=== PATIENT | female | born 1945 | race Caucasian/White ===

== ENCOUNTER 2016-10-06 21:59 | Inpatient (IN) | payer OTHER, MEDICAID ==
[~2016-10-06] VITALS: Ht 162.5 cm; Wt 93.0 kg
--- NOTE | ~2016-10-06 | CON ---
[place], [place] REPORT OF CONSULTATION NAME: JOHN JONES [facility] #: [id number] UNIT #: [id number] ROOM: 425 DOCTOR: NICOLE VALERIO DPM BIRTHDATE: [birth year] DOS: 10/07/2016 HISTORY OF PRESENT ILLNESS: The patient is a 70-year-old white female who is well known to our practice. The patient had a partial matrixectomy performed to the lateral right great toe. The patient still experiences some discomfort and redness to the area. PAST MEDICAL HISTORY: The patient has a past medical history of anxiety, COPD, depression, dyslipidemia, essential tremor, GERD, hypothyroidism, obesity. PAST SURGICAL HISTORY: Laparoscopic cholecystectomy, colonoscopy with polypectomy, rotator cuff repair. SOCIAL HISTORY: Denies alcohol or illicit drug use. Former smoker, quit 12 years ago, but smoked 1 pack daily for 25 years. FAMILY HISTORY: Family history of father unknown to the patient. Mother at 87 of COPD. ALLERGIES: PREDNISONE, ALBUTEROL. LOWER EXTREMITY EXAMINATION: Pedal pulses palpable. Skin color, temperature, and hair growth within normal limits. Epicritic sensations intact. Dermatologic: There is mild erythema noted to the lateral border of the right hallux. There is eschar noted at the proximal border upon debridement. There is no deep sinus tract noted. No signs of purulent drainage or foul odor. Mild incurvation at the proximal aspect noted, which was debrided. ASSESSMENT: Paronychia, lateral right hallux. PLAN: Evaluation and management. Debrided eschar at the proximal eponychium along with further nail plate at the proximal lateral aspect of the right hallux. Ordered Bactroban and gauze dressing to be applied daily, and we will reappoint with the patient for continued care and followup. Thank you for the kind consultation. NICOLE VALERIO DPM CM:CONSTR:REPORT OF CONSULTATION 1318 10/08/16 0333 interface
--- NOTE | ~2016-10-06 | CON ---
[place], [place] REPORT OF CONSULTATION NAME: JOHN JONES [facility] #: [id number] UNIT #: [id number] ROOM: 425 DOCTOR: LEI CH MDKAELA BIRTHDATE: [birth year] DOS: 10/11/2016 PULMONARY CONSULTATION EVALUATION AND MANAGEMENT Consultation requested by the hospitalist services. REASON FOR ASSESSMENT: Ongoing exacerbation of bronchial asthma for this patient now responding to current treatment with maximal medical therapy. HISTORY OF PRESENT ILLNESS: A 70-year-old white female who has been admitted to the hospital under the care of hospitalist service on 10/06/2016. The patient stated that she has developed significant progressive coughing for the past couple of weeks associated with severe wheezing. The patient's cough has been noted very severe and nonproductive. The cough has been associated with hoarseness later on. She was also noted with symptoms of shortness breath, which occurred with little bit of ambulation. She denied symptoms of chest pain, but complained of tightness in the chest. The patient has been treated with intravenous antibiotics, corticosteroids, bronchodilators of the patient since hospitalization and not responding to treatment. The cough has been noted as one of the major complaints for this patient, which has not been responding to the current treatment. REVIEW OF SYSTEMS: CONSTITUTIONAL SYMPTOMS: Fatigue and tiredness noted for this patient without symptoms of fever or chills. EYES: Denies burning, redness, or tenderness. EARS, NOSE, THROAT SYMPTOMS: The patient was noted with current hoarseness. The patient's is having severe cough. Denied postnasal drainage or epistaxis. CARDIOVASCULAR SYSTEM: Denies anginal pain, edema or pain of the lower extremities or palpitations. GASTROINTESTINAL SYMPTOMS: Denies nausea, vomiting, diarrhea, abdominal pain, hematemesis, or melena. Denied symptoms of dysphagia, abnormal weight loss or gastroesophageal reflux. SKIN: No lesions or rashes. GENITOURINARY SYMPTOMS: Denies dysuria, suprapubic pain, hematuria. CENTRAL NERVOUS SYSTEM: Denies dizziness, headache, diplopia, or syncopal episodes. Remaining systems were reviewed with the patient, they were noted all negative. PAST MEDICAL HISTORY: 1. Has been noted with history of longstanding bronchial asthma. 2. History of COPD, was also reported. 3. Anxiety disorder. 4. History of depression. 5. Essential tremors. 6. Gastroesophageal reflux. 7. Hypothyroidism. 8. Moderate severe obesity. 9. History of lumbago. [place], [place] REPORT OF CONSULTATION NAME: JOHN JONES [facility] #: [id number] UNIT #: [id number] ROOM: 425 DOCTOR: KAELA ANDERSON MD BIRTHDATE: [birth year] PAST SURGICAL HISTORY: 1. Laparoscopic cholecystectomy. 2. Polypectomy. 3. Rotator cuff repair. SOCIAL HISTORY: The patient started smoking cigarettes at his younger age, smoked about a pack of cigarettes per day that was discontinued in 2003. Denied history of illicit drug use or occupation related pulmonary exposure. FAMILY HISTORY: For the father was unknown. Mother age of 8787 years old, complications of COPD. MEDICATIONS: The home medication was reported as use of, Lipitor, Celexa, diazepam, Aricept, Lingle, ibuprofen, levothyroxine, primidone, and tizanidine. ALLERGIES: THE PATIENT'S DRUG ALLERGY IS NOTED WITH PREDNISONE CAUSING INCREASED ANXIETY. ALBUTEROL ALSO CAUSING THE SYMPTOMS OF ANXIETY WELL. PHYSICAL EXAMINATION: GENERAL: A 70-year-old white female who has been currently noted awake and alert without any distress. Height of 5 feet 4 inches, weight of 205 pounds, BMI 35.2, notes excessive coughing without any sputum expectoration upon examination. VITAL SIGNS: Showed normal temperature, respiratory rate 16-18, heart 68-65, blood pressure 98/49-119/70. The pulse oxygen saturation on room air was 95% saturation. HEENT: Moderate severe obesity. Neck was supple. Head was atraumatic. Eyes nonicterus. CARDIOVASCULAR SYSTEM: S1, S2 is audible. LUNGS: Examination of lungs for the patient noted without any crackles. Diffuse expiratory wheezing noted with decreased breath sounds bilaterally. ABDOMEN: Soft, nontender. Bowel sounds present. EXTREMITIES: For the patient shows no edema, clubbing, or cyanosis. CENTRAL NERVOUS SYSTEM: Cranial nerves 2-12 intact. MUSCULOSKELETAL SYMPTOMS: No deformities. SKIN: No lesions or rashes. LABORATORY DATA: On 10/06/2016, CBC was noted as normal except eosinophils of 4.1% for the patient on 10/06/2016. Lactic acid normal, 10/06/2016. 10/06/2016, CMP for this patient was noted as normal. The PT, PTT for the patient of 10/07/2016 were normal. CK-MB, troponin were noted normal on 10/06/2016 and 10/07/2016. CBC that was done yesterday remains normal with eosinophils 0.7%. The BMP of the patient yesterday shows glucose of 131. Remaining BMP was normal. Blood culture from admission 10/06/2016, no bacterial growth. Chest x-ray of the patient, which has been noted for this patient on admission as no acute pulmonary pathology. CT of the chest of the patient, 10/10/2016 for the patient was noted without any acute pulmonary infiltration or other major abnormalities. [place], [place] REPORT OF CONSULTATION NAME: JOHN JONES UNIT #: [id number] ROOM: 425 DOCTOR: KAELA ANDERSON MD BIRTHDATE: [birth year] IMPRESSION: The patient with nonresolving acute exacerbation of chronic obstructive pulmonary disease and bronchial asthma for this patient with persistent symptoms of cough, wheezing, and shortness of breath with maximal medical therapy at the present time. Possibility of mucus impaction of the major airways was suspected. The patient was getting very high dose of corticosteroids and Solu-Medrol 80 mg q. 8 hours without any response to the treatment. PLAN OF TREATMENT: Therapeutic bronchoscopy for the patient was considered and plan for the patient to be done in the morning. Risks and benefits of procedure have been discussed with the patient in detail. The patient is agreeable for the procedure. Procedure was scheduled to be done in the morning, n.p.o. past midnight status will be ordered. Reduce the Solu-Medrol for this patient at the present time for this patient since there has not been any further changes noted with high dose of corticosteroids. The Solu-Medrol will be decreased to 40 mg every 8 hours at the present time. Other supportive therapy, plan of management to be continued as well. Usual care. Supportive care, other usual medical management. Further changes in the treatment will be done based on progression of the illness. Continue use of the flutter valve and other treatment as well to help clear secretions if possible. Thanks for allowing me to participate in the care of this patient. KAELA ODOM MD CM:CONSTR:REPORT OF CONSULTATION 1352 11/18/16 1131 interface
--- NOTE | ~2016-10-06 | PR ---
[place], [place] PROGRESS NOTE NAME: JOHN JONES [facility] #: [id number] UNIT #: [id number] ROOM: 425 DOCTOR: LETY THAO DPM BIRTHDATE: [birth year] DOS: 10/08/2016 SUBJECTIVE: This patient is seen for followup of removal of ingrown toenail of the right great toe. She states that she is feeling better and looks better, less redness and swelling, less pain. OBJECTIVE: Neurovascular status is unchanged. The lateral border of the right great toe has minimal edema and erythema. No purulent drainage or malodor, no signs of active infection. Minimal pain noted to palpation. ASSESSMENT: Paronychia, lateral right great toe. PLAN: E and M, continue with local wound care. The patient is improving nicely at this time. We can follow her up upon discharge in the office as an outpatient. LETY THAO DPM CM:PNTRANS [phone] LETY THAO DPM 10/09/16 0343 interface
--- NOTE | ~2016-10-06 | PROC NOTE ---
[place], [place] PROCEDURE NOTE [facility]: [facility] [id number] UNIT #: [id number] ROOM: 425 DOCTOR: LEI CH MD,KAELA BIRTHDATE: [birth year] DOS: 10/12/2016 BRONCHOSCOPY NOTE PREOPERATIVE DIAGNOSES: Severe nonresolving cough and wheezing and shortness of breath, not responding to current maximum medical therapy for the past several days. POSTOPERATIVE DIAGNOSES: Removal of multiple moderate amount of mucus impaction from the endobronchial tree bilaterally without difficulty. There were no endobronchial lesions. Tracheobronchitis was noted. PROCEDURE DESCRIPTION: Informed consent obtained from the patient. The patient brought to the OR and placed in supine position. Conscious sedation administered by the Anesthesia Department. After achieving proper sedation, airway introduced in the mouth. Bronchoscope advanced into the airway into laryngeal area. The epiglottis and vocal cords were seen. Bronchoscope advanced to the vocal cord and tracheal lumen. Tracheal lumen was identified and noted with moderate amount of thick mucus secretion, which was suctioned out to the julio c level. Multiple plugs and mucus were present in right upper, right middle, right lower, left upper, lingular lower lobe, bronchial openings and subsegments. All the secretions suctioned out with half normal saline wash, sent for culture. Procedure was tolerated by the patient without difficulty. Postoperative finding was discussed with the patient without any difficulty. KAELA ODOM MD CM:PROCNOTE:PROCEDURE NOTE [phone] KAELA CH MD
--- NOTE | ~2016-10-06 | PR ---
[place], [place] PROGRESS NOTE NAME: JOHN JONES [facility] #: [id number] UNIT #: [id number] ROOM: 425 DOCTOR: LEI CH MD,KAELA BIRTHDATE: [birth year] DOS: 10/12/2016 SUBJECTIVE: She has been noted severe continued cough without any improvement. The wheezing was also described as shortness of breath in exertion. The patient denies any symptoms of chest pain, abdominal pain. She is n.p.o. past midnight and bronchoscopy was planned for today. OBJECTIVE: VITAL SIGNS: Show normal temperature, respiratory rate 20, heart rate 77, blood pressure 127/65. Intake is 2090, output 2100 mL. Pulse oxygen saturation on room air was 94% saturation. HEENT: Shows no acute change. NECK: Supple. CARDIOVASCULAR SYSTEM: S1, S2 is audible. LUNGS: For this patient was noted without any crackles or rhonchi. Deep breaths are noted decreased bilaterally. Expiratory wheezing was present. ABDOMEN: Soft, obese, nontender. IMPRESSION: The patient with acute exacerbation of bronchial asthma with tracheobronchitis as well as Sulfanilamide chronic obstructive pulmonary disease as well not responding to current treatment, persistent respiratory symptoms. PLAN OF TREATMENT: Plan for the bronchoscopy, proceed with bronchoscopy rather today as planned. No change in medical management and modification of treatment if necessary will be done after bronchoscopy. Continue the usual care, plan of management, other treatment and therapies. Supportive care. KAELA ODOM MD CM:PNTRANS [phone] KAELA CH MD 10/12/162137 interface
--- NOTE | ~2016-10-06 | PR ---
[place], [place] PROGRESS NOTE NAME: JOHN JONES [facility] #: [id number] UNIT #: [id number] ROOM: 425 DOCTOR: LEI CH MD,KAELA BIRTHDATE: [birth year] DOS: 10/13/2016 SUBJECTIVE: The patient has bronchoscopy done yesterday significant reduction in respiratory symptoms were noted. She denies symptoms of chest pain or any abdominal pain. The wheezing, shortness of breath and cough has been resolving. OBJECTIVE: VITAL SIGNS: Normal temperature, respiratory rate 14, heart rate of 70, blood pressure 118/72. Pulse oxygen saturation on room air was 95% saturation. HEENT: Shows no acute change. NECK: Supple. CARDIOVASCULAR SYSTEM: S1, S2 audible. LUNGS: Noted without any wheeze or crackles. ABDOMEN: Soft, nontender. LABORATORY DATA: Preliminary culture of the bronchial washing showed normal kalee. Gram stains few epithelial cells without any organisms. IMPRESSION: The patient with progressive resolution of the acute exacerbation of chronic obstructive pulmonary disease/bronchial asthma. The patient at the present time status post bronchoscopy. PLAN OF TREATMENT: The patient will be continued with current plan of management. The patient rather could be considered for home discharge on tapering dose of prednisone or antibiotic and follow up in the office. Continue abstinence from tobacco use was advised. KAELA ODOM MD CM:PNTRANS 1248 KAELA CH MD 10/13/167 interface
--- NOTE | ~2016-10-06 | PR ---
[place], [place] PROGRESS NOTE NAME: JOHN JONES [facility] #: [id number] UNIT #: [id number] ROOM: 425 DOCTOR: NICOLE VALERIO DPM BIRTHDATE: [birth year] DOS: 10/12/2016 SUBJECTIVE: The patient presents for followup of paronychia of lateral border of the right great toe. OBJECTIVE: There is decreased erythema and mild eschar of the proximal aspect of the lateral right eponychium. ASSESSMENT: Paronychia of lateral first right toe. PLAN: Evaluation and management. Apply Bactroban and dressing daily and we will reappoint for followup if the patient is still inhouse in 2 days. NICOLE VALERIO DPM CM:RACHEL [phone] NICOLE VALERIO DPM 10/12/161931 interface
--- NOTE | ~2016-10-06 | PR ---
[place], [place] PROGRESS NOTE NAME: JOHN JONES [facility] #: [id number] UNIT #: [id number] ROOM: 425 DOCTOR: NICOLE VALERIO DPM BIRTHDATE: [birth year] DOS: 10/09/2016 SUBJECTIVE: The patient presents for followup of perionychia, lateral border of the right great toe. The patient felt much improved at this time. OBJECTIVE: EXTREMITIES: There is decreased erythema compared to visit on . No signs of purulent drainage or foul odor, much improved. ASSESSMENT: Paronychia, lateral right great toe. PLAN: Evaluation and management. Continue local wound care, and the patient can be followed next week as an outpatient. NICOLE VALERIO DPM CM:RACHEL [phone] NICOLE VALERIO DPM 10/10/16 0124 interface
[~2016-10-06 21:59] MED LIST: ACETAMINOPHEN-H1 TA2 PO; ALBUTEROL0.09 MG/A2 INH; AMOXICILLIN500 M2 PO; ARICEPT5 M1 PO; ATIVAN1 MG PO; B12,B-12,B 12500 MC1 PO; CALCIUM 600 +1 EA11 PO; CELEXA20 MG PO; CELEXA40 MG PO; CIPRO250 MG PO; CLINDAMYCIN150 MG PO; DAYPRO600 M1 PO; DIAZEPAM10 MG PO; FLAGYL500 MG PO; HYDROCODONE BIT1 T11 PO; IMODIUM A-D2 M2 PO; LEVAQUIN750 M1 PO; LEVOFLOXACIN500 MG PO; LEVOTHYROXINE0.1 MG PO; LIPITOR20 MG PO; LIPITOR40 MG PO; MOBIC7.5 MG PO; MOTRIN 600 MG E4 TAB PO; MOTRIN800 MG PO; MYSOLINE50 M2 PO; Motrin,Rufen800 MG PO; Mysoline50 MG PO; NAPROSYN500 MG PO; NORCO 10-325 T1 EACH PO; NORCO 325 MG-51 TAB PO; NORCO 5-325 TA1 EACH PO; PERCOCET 325 MG1 TA1 PO; PERCOCET 325 MG1 TA6 PO; PREDNISONE10 MG PO; PREDNISONE50 MG PO; PREVACID30 M1 PO; PRILOSEC20 M1 PO; PROAIR HFA8.5 GM INH; SOMA; SOMA COMPOUND PO; SONATA10 MG PO; SYMBICORT1 AE1 INH; SYNTHROID,LEV100 MCG PO; Synthroid,Levo50 MCG PO; TESSALON PERLE200 MG PO; TIZANIDINE HCL4 MG PO; TRAMADOL HCL50 MG PO; ULTRAM50 MG PO; VALIUM5 MG PO; VIBRA-TAB100 M1 PO; VITAMIN D5000 I2 PO; VITAMIN D50000 I3 PO; VITAMIN D50000 IU PO; ZANAFLEX4 M1 PO; ZOFRAN ODT4 MG SL
[2016-10-06 22:03] VITALS: BP 123/80
[2016-10-06 22:51] LABS: BASO % 0.6 % (0.0-1.0); EOS # 0.3 10*3/uL (0.0-0.4); EOS % 4.1 % (1.0-4.0); LYMPH # 1.2 10*3/uL (1.3-4.4); MEAN CELL VOLUME 90.7 fl (81.0-99.0); MEAN CORPUSCULAR HGB 30.2 pg (27.0-31.0); MEAN CORPUSCULAR HGB CONC 33.3 g/dl (33.0-37.0); MEAN PLATELET VOLUME 9.4 fl (9.6-12.3); MONO # 0.5 10*3/uL (0.1-1.0); MONO % 7.3 % (3.0-9.0); NEUT # 5.1 10*3/uL (2.3-7.9); NEUT % 70.7 % (47.0-73.0); PLATELET COUNT AUTOMATED 157 10*3/uL (130-400); RED CELL DISTRI WIDTH 13.2 % (0-14.5); WHITE BLOOD COUNT 7.2 10*3/uL (4.8-10.8)
[2016-10-06 23:00] VITALS: BP 140/82
[2016-10-06 23:06] LABS: ALBUMIN 3.9 gm/dl (3.1-4.5); BILIRUBIN, TOTAL 0.2 mg/dl (0.2-1.0); BUN 9 mg/dl (7-24); CARBON DIOXIDE 29 mmol/L (21-32); CHLORIDE 106 mmol/L (98-107); EST GLOM FILT AFRICAN AMERICAN > 60 ml/min; GLUCOSE 106 mg/dL (65-99); POTASSIUM 3.8 mmol/L (3.5-5.1); SGOT/AST 26 IU/L (3-35); SGPT/ALT 36 U/L (12-78); SODIUM 143 mmol/L (136-145); TOTAL PROTEIN 7.2 gm/dL (6.4-8.2)
[2016-10-06 23:09] LABS: ALKALINE PHOSPHATASE 110 U/L (45-117)
[2016-10-07 00:15] VITALS: BP 144/88
[2016-10-07] MEDS ORDERED: VALIUM10 MG PO (01:05)
[2016-10-07 04:00] VITALS: BP 128/61
[2016-10-07 06:38] LABS: BASO % 0.3 % (0.0-1.0); EOS % 0.3 % (1.0-4.0); HEMATOCRIT 37.7 % (37.0-47.0); HEMOGLOBIN 12.1 g/dl (12.0-16.0); LYMPH # 0.6 10*3/uL (1.3-4.4); LYMPH % 8.9 % (27.0-41.0); MEAN CELL VOLUME 92.2 fl (81.0-99.0); MEAN CORPUSCULAR HGB 29.6 pg (27.0-31.0); MEAN CORPUSCULAR HGB CONC 32.1 g/dl (33.0-37.0); MEAN PLATELET VOLUME 9.6 fl (9.6-12.3); MONO # 0.4 10*3/uL (0.1-1.0); NEUT # 5.1 10*3/uL (2.3-7.9); PLATELET COUNT AUTOMATED 133 10*3/uL (130-400); RED BLOOD COUNT 4.09 10*6/uL (4.10-5.10); RED CELL DISTRI WIDTH 13.2 % (0-14.5); WHITE BLOOD COUNT 6.2 10*3/uL (4.8-10.8)
[2016-10-07 06:49] LABS: CKMB 0.9 ng/ml (0.5-3.6)
[2016-10-07 07:41] LABS: INTERNATIONAL NORM RATIO 0.9 (2.0-3.5); PROTHROMBIN TIME 9.7 SECONDS (9.0-12.4)
[2016-10-07 07:45] LABS: BUN 10 mg/dl (7-24); CARBON DIOXIDE 29 mmol/L (21-32); CHLORIDE 105 mmol/L (98-107); EST GLOM FILT AFRICAN AMERICAN > 60 ml/min; GLUCOSE 130 mg/dL (65-99); POTASSIUM 3.9 mmol/L (3.5-5.1); SODIUM 143 mmol/L (136-145)
[2016-10-07 08:00] VITALS: BP 152/82
[2016-10-07 12:00] VITALS: BP 135/66
[2016-10-07 12:20] LABS: CKMB 1.1 ng/ml (0.5-3.6)
[2016-10-07 16:00] VITALS: BP 136/93
[2016-10-08] VITALS: BP 119/63
[2016-10-08 08:00] VITALS: BP 138/80
[2016-10-08 12:00] VITALS: BP 138/85
[2016-10-08 16:00] VITALS: BP 120/76
[2016-10-08 20:00] VITALS: BP 142/77
[2016-10-09] VITALS: BP 126/61
[2016-10-09 08:00] VITALS: BP 148/82
[2016-10-09 12:00] VITALS: BP 110/86
[2016-10-09] MEDS ORDERED: PRIMIDONE250 MG PO (13:47)
[2016-10-09 16:00] VITALS: BP 132/70
[2016-10-09 20:00] VITALS: BP 130/72
[2016-10-10] VITALS: BP 115/90
[2016-10-10 06:11] LABS: BASO % 0.5 % (0.0-1.0); EOS % 0.7 % (1.0-4.0); HEMATOCRIT 38.4 % (37.0-47.0); HEMOGLOBIN 12.5 g/dl (12.0-16.0); LYMPH # 1.1 10*3/uL (1.3-4.4); LYMPH % 18.8 % (27.0-41.0); MEAN CELL VOLUME 91.2 fl (81.0-99.0); MEAN CORPUSCULAR HGB 29.7 pg (27.0-31.0); MEAN CORPUSCULAR HGB CONC 32.6 g/dl (33.0-37.0); MEAN PLATELET VOLUME 9.9 fl (9.6-12.3); MONO # 0.5 10*3/uL (0.1-1.0); MONO % 8.2 % (3.0-9.0); NEUT % 71.1 % (47.0-73.0); PLATELET COUNT AUTOMATED 177 10*3/uL (130-400); RED BLOOD COUNT 4.21 10*6/uL (4.10-5.10); RED CELL DISTRI WIDTH 13.2 % (0-14.5); WHITE BLOOD COUNT 5.6 10*3/uL (4.8-10.8)
[2016-10-10 06:52] LABS: BUN 23 mg/dl (7-24); CARBON DIOXIDE 26 mmol/L (21-32); CHLORIDE 106 mmol/L (98-107); EST GLOM FILT AFRICAN AMERICAN > 60 ml/min; GLUCOSE 131 mg/dL (65-99); POTASSIUM 4.5 mmol/L (3.5-5.1); SODIUM 140 mmol/L (136-145)
[2016-10-10 08:00] VITALS: BP 104/62
[2016-10-10 12:00] VITALS: BP 116/58
[2016-10-10 16:00] VITALS: BP 117/70
[2016-10-10 20:00] VITALS: BP 138/73
[2016-10-11] VITALS: BP 136/73
[2016-10-11 08:00] VITALS: BP 116/70
[2016-10-11 12:00] VITALS: BP 98/49
[2016-10-11 16:00] VITALS: BP 98/71
[2016-10-11 20:00] VITALS: BP 136/73
[2016-10-12] VITALS (8 sets, daily range): BP systolic 121–137; BP diastolic 63–90
[2016-10-12] MEDS ORDERED: AEROECLIPSE NEB1 DEV NEB (13:05)
[2016-10-12] MEDS ORDERED: LEVAQUIN750 M1 PO (13:05)
[2016-10-12] MEDS ORDERED: DUONEB 3 MG/3 ML3 M1 INH (13:05)
[2016-10-12] MEDS ORDERED: PREDNISONE50 MG PO (13:05)
[2016-10-13] VITALS: BP 108/62
[2016-10-13 07:39] VITALS: BP 122/70
[2016-10-13 12:00] VITALS: BP 118/72
[2016-10-13] MEDS ORDERED: DULERA 100 MCG8.8 GM IH (12:38)
[2016-10-13 15:08] LABS: ACID FAST SPEC PROCESSING Concentration (.)
[2016-11-01 16:09] LABS: M AVIUM COMPLEX Positive (.); M TUBERCULOSIS COMPLEX Negative (.)
[2016-12-09] MEDS ORDERED: PROPRANOLOL HCL60 MG PO (16:23)
[2016-12-09] MEDS ORDERED: AMOX/CLAV POT 81 TAB PO (16:23)
[2016-12-09] MEDS ORDERED: ROBITUSSIN DM 101 OZ PO (18:02)
== END 2016-10-13 13:09 | disposition home health service (06) | DRG 190 ==
LOC: ED 21:59 → EDHOLD 23:34 → 4E 23:34
PROVIDERS: Family Medicine; Internal Medicine; Internal Medicine Critical Care Medicine; Nurse Practitioner Family
PROC: 0BC48ZZ Extirpation of Matter from Right Upper Lobe Bronchus, Via Natural or Artificial Opening Endoscopic (ICD-10-PCS; principal; 2016-10-12)
PROC: 0BC58ZZ Extirpation of Matter from Right Middle Lobe Bronchus, Via Natural or Artificial Opening Endoscopic (ICD-10-PCS; principal; 2016-10-12)
PROC: 0BC28ZZ Extirpation of Matter from Carina, Via Natural or Artificial Opening Endoscopic (ICD-10-PCS; principal; 2016-10-12)
PROC: 0BC88ZZ Extirpation of Matter from Left Upper Lobe Bronchus, Via Natural or Artificial Opening Endoscopic (ICD-10-PCS; principal; 2016-10-12)
PROC: 0BC98ZZ Extirpation of Matter from Lingula Bronchus, Via Natural or Artificial Opening Endoscopic (ICD-10-PCS; principal; 2016-10-12)
PROC: 0BC68ZZ Extirpation of Matter from Right Lower Lobe Bronchus, Via Natural or Artificial Opening Endoscopic (ICD-10-PCS; principal; 2016-10-12)
DX: J44.1 Chronic obstructive pulmonary disease with (acute) exacerbation (principal); J18.9 Pneumonia, unspecified organism; J44.0 Chronic obstructive pulmonary disease with (acute) lower respiratory infection; K21.9 Gastro-esophageal reflux disease without esophagitis; G25.0 Essential tremor; F41.9 Anxiety disorder, unspecified; F32.9 Major depressive disorder, single episode, unspecified; E78.5 Hyperlipidemia, unspecified; E03.9 Hypothyroidism, unspecified; L03.031 Cellulitis of right toe; R73.9 Hyperglycemia, unspecified; E55.9 Vitamin D deficiency, unspecified; E66.9 Obesity, unspecified; J20.9 Acute bronchitis, unspecified; Z68.35 Body mass index [BMI] 35.0-35.9, adult; Z90.49 Acquired absence of other specified parts of digestive tract; Z98.890 Other specified postprocedural states; Z87.891 Personal history of nicotine dependence; Z88.8 Allergy status to other drugs, medicaments and biological substances; Z82.5 Family history of asthma and other chronic lower respiratory diseases; Z79.899 Other long term (current) drug therapy

== ENCOUNTER → 2017-01-18 | Outpatient (CLI) | payer OTHER, MEDICAID ==
[~2017-01-18] MED LIST changes: +AEROECLIPSE NEB1 DEV NEB; +AMOX/CLAV POT 81 TAB PO; +DULERA 100 MCG8.8 GM IH; +DUONEB 3 MG/3 ML3 M1 INH; +PRIMIDONE250 MG PO; +PROPRANOLOL HCL60 MG PO; +ROBITUSSIN DM 101 OZ PO; +VALIUM10 MG PO
== END | disposition home or self-care (01) ==
LOC: LAB 14:47
DX: R05 Cough (principal)

== ENCOUNTER 2017-02-16 13:40 | Emergency (ER) | payer OTHER, MEDICAID ==
[~2017-02-16] VITALS: Ht 165.1 cm; Wt 90.7 kg
[2017-02-16 13:55] VITALS: BP 123/80
[2017-02-16 14:27] LABS: BASO % 0.3 % (0.0-1.0); EOS # 0.2 10*3/uL (0.0-0.4); HEMATOCRIT 42.5 % (37.0-47.0); HEMOGLOBIN 14.9 g/dl (12.0-16.0); LYMPH # 1.7 10*3/uL (1.3-4.4); LYMPH % 15.4 % (27.0-41.0); MEAN CELL VOLUME 87.4 fl (81.0-99.0); MEAN CORPUSCULAR HGB 30.7 pg (27.0-31.0); MEAN CORPUSCULAR HGB CONC 35.1 g/dl (33.0-37.0); MEAN PLATELET VOLUME 9.2 fl (9.6-12.3); MONO # 0.7 10*3/uL (0.1-1.0); MONO % 6.4 % (3.0-9.0); NEUT # 8.5 10*3/uL (2.3-7.9); NEUT % 75.7 % (47.0-73.0); PLATELET COUNT AUTOMATED 200 10*3/uL (130-400); RED BLOOD COUNT 4.86 10*6/uL (4.10-5.10); RED CELL DISTRI WIDTH 13.1 % (0-14.5); WHITE BLOOD COUNT 11.2 10*3/uL (4.8-10.8)
[2017-02-16 14:41] LABS: ALBUMIN 4.2 gm/dl (3.1-4.5); ALKALINE PHOSPHATASE 98 U/L (45-117); BILIRUBIN, TOTAL 0.4 mg/dl (0.2-1.0); BUN 16 mg/dl (7-24); CARBON DIOXIDE 24 mmol/L (21-32); CHLORIDE 108 mmol/L (98-107); EST GLOM FILT AFRICAN AMERICAN > 60 ml/min; GLUCOSE 103 mg/dL (65-99); POTASSIUM 4.4 mmol/L (3.5-5.1); SGOT/AST 24 IU/L (3-35); SGPT/ALT 35 U/L (12-78); SODIUM 140 mmol/L (136-145); TOTAL PROTEIN 7.5 gm/dL (6.4-8.2)
[2017-02-16 15:35] LABS: BILIRUBIN 2+ (NEGATIVE); BLOOD 3+ (NEGATIVE); CLARITY TURBID (CLEAR); COLOR RED (YELLOW); GLUCOSE NEGATIVE (NEGATIVE); KETONE NEGATIVE (NEGATIVE); LEUKO ESTERASE 2+ (NEGATIVE); NITRITE POSITIVE (NEGATIVE); PROTEIN 2+ (NEGATIVE); SPECIFIC GRAVITY 1.025 (1.005-1.030)
[2017-02-16 15:43] LABS: BACTERIA 4+; RBC TNTC rbc/hpf (0-2); URINE REFLEX COMMENT YES (NO); WBC TNTC wbc/hpf (0-5)
[2017-02-16] MEDS ORDERED: AMINOPHYLLIN200 MG PO (16:09)
[2017-02-16] MEDS ORDERED: HYDROCODONE BIT1 T11 PO (16:09)
[2017-02-16] MEDS ORDERED: PYRIDIUM100 MG PO (16:09)
== END 2017-02-16 16:09 | disposition home or self-care (01) ==
LOC: ED 13:40
PROVIDERS: Registered Nurse
DX: N30.01 Acute cystitis with hematuria (principal); Z88.8 Allergy status to other drugs, medicaments and biological substances; Z79.899 Other long term (current) drug therapy

== ENCOUNTER → 2017-02-22 | Outpatient (CLI) | payer OTHER, MEDICAID ==
[~2017-02-22] MED LIST changes: +AMINOPHYLLIN200 MG PO; +PYRIDIUM100 MG PO
== END | disposition home or self-care (01) ==
LOC: CT 02-15 09:00
DX: G44.1 Vascular headache, not elsewhere classified (principal)

== ENCOUNTER → 2017-03-21 | Outpatient (CLI) | payer OTHER, MEDICAID | END | disposition home or self-care (01) | LOC: MRI 12:46 | DX: M47.892 Other spondylosis, cervical region (principal); M54.41 Lumbago with sciatica, right side; G89.29 Other chronic pain; R20.8 Other disturbances of skin sensation; M47.896 Other spondylosis, lumbar region; M48.06 Spinal stenosis, lumbar region ==

== ENCOUNTER → 2017-03-23 | Outpatient (CLI) | payer OTHER, MEDICAID ==
--- NOTE | ~2017-03-23 | PROC NOTE ---
[place], [place] PROCEDURE NOTE NAME: JOHN JONES [facility] #: [id number] UNIT #: [id number] ROOM: DOCTOR: MIKO NIX BIRTHDATE: [birth year] DOS: 03/23/2017 MODIFIED BARIUM SWALLOW. DOCTOR: Dr. Carbajal RADIOLOGIST: Dr. Hayden. BACKGROUND INFORMATION: The patient is a 71-year-old female who was seen for a modified barium swallow. This test was ordered to view the pharyngeal phase of the swallow. The patient reported that for the past 8 months, she has been choking with foods and experiences the feeling that something is on the left side of her throat. She also reported that she has difficulty chewing and eating anything hard such as cookies, chips or crackers. She reported her medical history significant for tremors, back, bladder and kidney problems. Medical history per hospital records includes COPD, GERD, essential tremor, anxiety and depression. This patient is a former smoker. She reported that she smoked about a pack a day for 25 years. She is no longer smoking. She currently receives a regular diet and thin liquids. For today's assessment, she was alert and able to follow all commands. Respiratory status was within normal limits. Tremor was displayed throughout the evaluation. Oral peripheral examination revealed presence of natural teeth which were in poor condition with many missing teeth. All of her back teeth, top and bottom were missing. Labial skills were within normal limits in terms of strength, range of motion, and coordination. She displayed adequate lingual strength and range of motion; however, her movements were slow. The patient was able to volitionally cough and swallow. METHODS AND MATERIALS USED FOR THE EXAM: The patient was positioned in the lateral plane and examination was viewed under fluoroscopy. The patient was presented with a variety of consistencies to assess swallowing skills including applesauce mixed with barium presented in half teaspoon amount, barium coated cookie and sandwich presented in bite-size pieces and thin liquid barium taken by cup and straw. The patient was given the cup and instructed to swallow in her normal sip size amount. ORAL PHASE: The patient achieved adequate labial seal around cup, spoon and straw with no anterior loss. Bolus formation was adequate. Mastication of solids was slow due to her dentition. Oral transit time was slow, but functional. Tongue to palate contact was within normal limits. Tongue to posterior pharyngeal wall contact was within normal limits. Velar functioning was within normal limits, with no nasal regurgitation displayed. PHARYNGEAL PHASE: A mild delay in initiation of the pharyngeal swallow was displayed with premature loss into the vallecula prior to the swallow. Once the swallow was triggered, there was no penetration or aspiration occurring and no significant residual. ESOPHAGEAL PHASE: This phase of the swallow was not formally assessed during this examination. [place], [place] [facility]EDURE NOTE [id number] #: [id number] ROOM: DOCTOR: MIKO NIX BIRTHDATE: [birth year] IMPRESSIONS AND RECOMMENDATIONS: Based upon assessment results, this 71-year-old patient presents with a mild oropharyngeal dysphagia. She displayed difficulty chewing solids due to dentition, piecemeal swallow was displayed. Premature loss occurred with pureed and solids due to delayed swallow initiation. This difficulty is most likely due to the patient's condition with medications that she is taking. No penetration or aspiration were noted and no significant residue was displayed post-swallow. It is recommended that the patient remain on present diet with use of universal safe swallow precautions, which she has been implementing. The patient demonstrated good awareness of her difficulties. No followup therapy is recommended at this time. The patient was educated on results and recommendations and verbalizes understanding. Thank you very much for this referral. Should you have any questions regarding this patient, please contact the speech pathologist at [phone]. MIKO NIX CM:PROCNOTE:PROCEDURE NOTE [id number] MIKO NIX
--- NOTE | ~2017-03-23 | SLPPN ---
[place], [place] MORNING BABYS[employer] PROGRESS NOTE NAME: JOHN JONES UNIT #: [id number] ROOM: DOCTOR: EDILIA FREEMAN Speech Language Pathology Treatment Note Page 1 1 of Patient Name: JOHN JONES Date: 03/23/2017 11:25 AM : 1945 SOC Date: 03/23/2017 [facility]: [facility] Provider #: [id number] Treating Clinician: MIRANDA Beltrán-SHRAVAN Referring Physician: EDILIA FREEMAN Onset Date Description Code Primary Diagnosis: 05/28/2016 R13.10 Dysphagia, unspecified Time In: 10:00 AM Time Out: 11:00 AM MORNING BABYSITTER Interventions and CPT Codes Consisted of: CPT Code Modifiers Minutes Units MOTION FLUOROSCOPY/SWALLOW 51991 60 1 Total Minutes: 60 Total Timed Minutes: 0 Total Untimed Minutes: 60 Total Units: 1 Total Timed Units: 0 Total Untimed Units: 1 03/23/2017 11:26:14 AM BOLIVAR Beltrán Date/Time State License #: [id number] CM:RAYMON 1435 1435 [facility]
--- NOTE | ~2017-03-23 | SLPPOC ---
[place], [place] WORKFORCE CONSULTANT PLAN OF CARE NAME: JOHN JONES UNIT #: [id number] ROOM: DOCTOR: EDILIA FREEMAN Speech Language Pathology Plan of Care Page 1 1 (Initial Evaluation) of Patient Name: JOHN JONES Date: 03/23/2017 11:23 AM : 1945 SOC Date: 03/23/2017 Provider: [facility] Provider #: [id number] Treating Clinician: MIRANDA Beltrán-WORKFORCE CONSULTANT Referring Physician: EDILIA FREEMAN Visits From SOC: 1 Medicaid #: [id number] Onset Date Code Description Primary Diagnosis: 05/28/2016 R13.10 Dysphagia, unspecified Subjective Comments: Initial evaluation created to initiate the electronic medical record. Please see [employer] for details. Initial Level Goals Functional Limitation Reporting Swallowing G8996 - Swallowing functional limitation, current status at therapy episode outset and at reporting intervals Current Status: CI - At least 1 percent but less than 20 percent impaired, limited or restricted G8997 - Swallowing functional limitation, projected goal status, at therapy episode outset, at reporting intervals, and at discharge or to end reporting Goal Status: CI - At least 1 percent but less than 20 percent impaired, limited or restricted G8998 - Swallowing functional limitation, discharge status, at discharge from therapy or to end reporting Discharge Status: CI - At least 1 percent but less than 20 percent impaired, limited or restricted 03/23/2017 11:25:15 AM EDILIA FREEMAN Date/Time MIRANDA Beltrán-WORKFORCE CONSULTANT Date I certify the need for these services furnished under this plan of treatment while under my care. State License #: [id number] CM:SLPPOC 1434 1434 [facility]
--- NOTE | ~2017-03-23 | SLPIE ---
[place], [place] ORNAMENT MAKER HAND INITIAL EVALUATION NAME: JOHN JONES Tabitha UNIT #: [id number] ROOM: DOCTOR: EDILIA FREEMAN Speech Language Pathology Initial Evaluation Page 1 1 of Patient Name: JOHN JONES Date: 03/23/2017 11:23 AM : 1945 SOC Date: 03/23/2017 Provider: [facility] Provider #: [id number] Treating Clinician: MIRANDA Beltrán-SHRAVAN Referring Physician: EDILIA FREEMAN Patient Information Address: February Physician: EDILIA FREEMAN Physician #: [place], Zip: [place], [place] [address] Occupation: Unknown # of Approved Visits: 0 Gender: Female Medicaid #: [id number] International Guest Coordinator: AGUSWALDEMAR JONES Rehabilitation Information / History Onset Date Code Description Primary Diagnosis: 05/28/2016 R13.10 Dysphagia, unspecified Subjective Comments: Initial evaluation created to initiate the electronic medical record. Please see [facility] for details. Clinical Findings Functional Goals Functional Limitation Reporting Swallowing G8996 - Swallowing functional limitation, current status at therapy episode outset and at reporting intervals Current Status: CI - At least 1 percent but less than 20 percent impaired, limited or restricted G8997 - Swallowing functional limitation, projected goal status, at therapy episode outset, at reporting intervals, and at discharge or to end reporting Goal Status: CI - At least 1 percent but less than 20 percent impaired, limited or restricted G8998 - Swallowing functional limitation, discharge status, at discharge from therapy or to end reporting Discharge Status: CI - At least 1 percent but less than 20 percent impaired, limited or restricted 03/23/2017 11:25:15 AM BOLIVAR Beltrán Date/Time [place], [place] ORNAMENT MAK[employer] HAND INITIAL EVALUATION NAME: ELISA JONESACE Lu UNIT #: [id number] ROOM: DOCTOR: EDILIA FREEMAN [facility] License #: [id number] CM:MARV 32 143 IS THERAPY REDOC
== END | disposition home or self-care (01) ==
LOC: RAD/SH 09:00
DX: R13.10 Dysphagia, unspecified (principal)

== ENCOUNTER → 2017-04-08 | Outpatient (CLI) | payer OTHER, MEDICAID | END | disposition home or self-care (01) | LOC: MAMMO 10:22 | DX: Z12.31 Encounter for screening mammogram for malignant neoplasm of breast (principal) ==

== ENCOUNTER 2017-04-20 20:47 | Inpatient (IN) | payer OTHER, MEDICAID ==
[~2017-04-20] VITALS: Ht 165.1 cm; Wt 93.0 kg
[~2017-04-20 20:47] MED LIST changes: +ARICEPT10 M1 PO; -ARICEPT5 M1 PO; +INDERAL LA60 M1 PO; -PROPRANOLOL HCL60 MG PO
[2017-04-20 20:52] VITALS: BP 143/105
[2017-04-20] MEDS ORDERED: ZYRTEC10 MG PO (21:04)
[2017-04-20] MEDS ORDERED: ZOFRAN4 MG PO (21:05)
[2017-04-20] MEDS ORDERED: OXYBUTYNIN5 MG PO (21:05)
[2017-04-20 21:06] LABS: BASO % 0.3 % (0.0-1.0); EOS # 0.2 10*3/uL (0.0-0.4); EOS % 3.2 % (1.0-4.0); HEMATOCRIT 39.8 % (37.0-47.0); HEMOGLOBIN 13.7 g/dl (12.0-16.0); LYMPH # 1.3 10*3/uL (1.3-4.4); LYMPH % 17.8 % (27.0-41.0); MEAN CELL VOLUME 88.1 fl (81.0-99.0); MEAN CORPUSCULAR HGB 30.3 pg (27.0-31.0); MEAN CORPUSCULAR HGB CONC 34.4 g/dl (33.0-37.0); MEAN PLATELET VOLUME 9.4 fl (9.6-12.3); MONO # 0.5 10*3/uL (0.1-1.0); MONO % 7.3 % (3.0-9.0); NEUT % 71.1 % (47.0-73.0); PLATELET COUNT AUTOMATED 175 10*3/uL (130-400); RED BLOOD COUNT 4.52 10*6/uL (4.10-5.10); RED CELL DISTRI WIDTH 12.6 % (0-14.5); WHITE BLOOD COUNT 7.1 10*3/uL (4.8-10.8)
[2017-04-20] MEDS ORDERED: NORCO 7.5-3251 EACH PO (21:06)
[2017-04-20] MEDS ORDERED: PRILOSEC20 M1 PO (21:06)
[2017-04-20 21:07] VITALS: BP 125/84
[2017-04-20 21:16] LABS: INTERNATIONAL NORM RATIO 0.9 (2.0-3.5); PROTHROMBIN TIME 9.9 SECONDS (9.0-12.4)
[2017-04-20 21:22] VITALS: BP 190/86
[2017-04-20 21:22] LABS: ALBUMIN 4.2 gm/dl (3.1-4.5); ALKALINE PHOSPHATASE 82 U/L (45-117); BILIRUBIN, TOTAL 0.5 mg/dl (0.2-1.0); BUN 8 mg/dl (7-24); CARBON DIOXIDE 24 mmol/L (21-32); CHLORIDE 105 mmol/L (98-107); EST GLOM FILT AFRICAN AMERICAN > 60 ml/min; GLUCOSE 107 mg/dL (65-99); MAGNESIUM 1.8 mg/dL (1.5-2.1); SGOT/AST 19 IU/L (3-35); SGPT/ALT 26 U/L (12-78); SODIUM 141 mmol/L (136-145)
[2017-04-20 21:26] LABS: TROPONIN I 0.176 ng/ml (<0.045)
[2017-04-20 21:37] VITALS: BP 123/51
[2017-04-20 21:52] VITALS: BP 136/72
[2017-04-21] VITALS (33 sets, daily range): BP systolic 62–126; BP diastolic 22–72
[2017-04-21 07:06] LABS: BASO % 0.2 % (0.0-1.0); EOS # 0.2 10*3/uL (0.0-0.4); EOS % 3.6 % (1.0-4.0); HEMATOCRIT 37.2 % (37.0-47.0); HEMOGLOBIN 12.7 g/dl (12.0-16.0); LYMPH # 1.8 10*3/uL (1.3-4.4); LYMPH % 37.8 % (27.0-41.0); MEAN CELL VOLUME 90.3 fl (81.0-99.0); MEAN CORPUSCULAR HGB 30.8 pg (27.0-31.0); MEAN CORPUSCULAR HGB CONC 34.1 g/dl (33.0-37.0); MEAN PLATELET VOLUME 9.4 fl (9.6-12.3); MONO # 0.4 10*3/uL (0.1-1.0); MONO % 8.5 % (3.0-9.0); NEUT # 2.4 10*3/uL (2.3-7.9); NEUT % 49.7 % (47.0-73.0); PLATELET COUNT AUTOMATED 140 10*3/uL (130-400); RED BLOOD COUNT 4.12 10*6/uL (4.10-5.10); RED CELL DISTRI WIDTH 12.8 % (0-14.5); WHITE BLOOD COUNT 4.7 10*3/uL (4.8-10.8)
[2017-04-21 07:16] LABS: HEMOGLOBIN A1c 5.5 % (4.8-5.6)
[2017-04-21 07:37] LABS: BUN 6 mg/dl (7-24); CARBON DIOXIDE 28 mmol/L (21-32); CHLORIDE 107 mmol/L (98-107); CHOLESTEROL 194 mg/dL (<200); EST GLOM FILT AFRICAN AMERICAN > 60 ml/min; GLUCOSE 95 mg/dL (65-99); PHOSPHOROUS 2.9 mg/dL (2.5-4.9); SODIUM 143 mmol/L (136-145); TRIGLYCERIDES 204 mg/dl (<150); VLDL CHOLESTEROL 41 mg/dL (6-40)
[2017-04-21 07:45] LABS: FOLIC ACID 12.44 ng/mL (>5.38)
[2017-04-21 07:46] LABS: FREE T4 0.98 ng/dl (0.76-1.46); HDL CHOLESTEROL 47 mg/dl (40-60); LDL CHOLESTEROL 106 mg/dL (9-159); THYROID STIM HORMONE (HS) 0.583 uIU/ml (0.358-4.75)
[2017-04-21] MEDS ORDERED: LIPITOR20 MG PO (09:25)
[2017-04-21] MEDS ORDERED: MIRALAX17 GM PO (09:26)
[2017-04-21] MEDS ORDERED: LOPRESSOR25 MG PO (22:13)
[2017-04-21] MEDS ORDERED: ASPIRIN CHEWABL81 MG PO (22:13)
[2017-04-22] VITALS: BP 123/42
[2017-04-22 04:00] VITALS: BP 120/59
== END 2017-04-22 05:35 | disposition other institution (70) | DRG 282 ==
LOC: ED 20:47 → EDHOLD 21:53 → ICCU 21:53 → 5E 22:12 → ICCU 04-21 09:01
PROVIDERS: Emergency Medicine Emergency Medical Services; Internal Medicine Hospice and Palliative Medicine
DX: I21.4 Non-ST elevation (NSTEMI) myocardial infarction (principal); J44.9 Chronic obstructive pulmonary disease, unspecified; E55.9 Vitamin D deficiency, unspecified; F32.9 Major depressive disorder, single episode, unspecified; E78.5 Hyperlipidemia, unspecified; G25.0 Essential tremor; F41.1 Generalized anxiety disorder; K21.9 Gastro-esophageal reflux disease without esophagitis; K52.9 Noninfective gastroenteritis and colitis, unspecified; E03.9 Hypothyroidism, unspecified; R73.9 Hyperglycemia, unspecified; E66.9 Obesity, unspecified; N32.81 Overactive bladder; Z88.8 Allergy status to other drugs, medicaments and biological substances; Z90.49 Acquired absence of other specified parts of digestive tract; Z87.891 Personal history of nicotine dependence; Z68.39 Body mass index [BMI] 39.0-39.9, adult

== ENCOUNTER → 2017-04-27 | Outpatient (CLI) | payer OTHER, MEDICAID ==
[~2017-04-27] MED LIST changes: +ASPIRIN CHEWABL81 MG PO; +LOPRESSOR25 MG PO; +MIRALAX17 GM PO; +NORCO 7.5-3251 EACH PO; +OXYBUTYNIN5 MG PO; +ZOFRAN4 MG PO; +ZYRTEC10 MG PO
== END | disposition home or self-care (01) ==
LOC: LAB 20:37
DX: K52.9 Noninfective gastroenteritis and colitis, unspecified (principal)

== ENCOUNTER 2017-05-16 08:27 | Inpatient (IN) | payer OTHER, MEDICAID ==
[2017-05-16] VITALS (11 sets, daily range): BP systolic 106–160; BP diastolic 45–98
[~2017-05-16] VITALS: Ht 165.1 cm; Wt 90.4 kg
--- NOTE | ~2017-05-16 | CON ---
[place], [place] REPORT OF CONSULTATION NAME: JOHN JONES [facility] #: [id number] UNIT #: [id number] ROOM: 403 DOCTOR: SATINDER FITZGERALD MD BIRTHDATE: [birth year] DOS: REQUESTING PHYSICIAN: Dr. Guadarrama. REASON FOR CONSULTATION: Elevated troponin. ASSESSMENT: 1. Current presentation with nausea, abdominal pain and diarrhea along with vomiting. 2. Elevated troponin. 3. Presentation in April with similar complaint of elevated troponin and with normal cardiac catheterization with Dr. Carey. 4. Similar presentation previously many years ago with another reported cardiac catheterization. 5. No Cardiac complaints. 6. Completely normal EKG with no acute changes. PLAN: 1. Continue workup for nausea and vomiting. 2. Management of diarrhea per PCP. 3. No further cardiac testing at this time. 4. The patient can be discharged home from the Cardiology point of view. HISTORY OF PRESENT ILLNESS: The patient is a pleasant 71-year-old female well known to our group with Dr. Nicholson. The patient apparently presented initially in April with complaint of chest pain and abdominal pain. At that time elevated troponin was noticed and the patient was transferred to ____ for non-STEMI. Cardiac catheterization was done by Dr. Carey, which showed completely normal coronaries with not even minimal plaques with normal LV function and no wall motion abnormalities. The patient apparently had similar presentation in the past with elevated troponin and underwent another cardiac catheterization, which was reported to be normal. The patient ____ back with 1-day history of nausea, vomiting along with diarrhea. This was after eating peaches. The patient has had also some chills, but no fever along with significant abdominal pain. No bright red blood per rectum. The patient unable to keep any oral food in or fluid. No chest pain, chest pressure, heaviness or tightness. No jaw pain. No left arm pain. No back pain. No symptomatic palpitation. The patient is getting dizzy following the bouts of nausea and vomiting. The patient prior to this presentation had been doing relatively well. She is active around the house, but does not follow a regular exercise program. What she is doing now is relatively similar to what she did 6 months ago. No PND. No orthopnea. No pedal edema. No symptomatic palpitation or any associated dizziness, lightheadedness or near syncope. Overall, maintaining good appetite with no significant weight shift recently. PAST MEDICAL HISTORY: As detailed in my assessment. SOCIAL HISTORY: The patient denies any current tobacco, alcohol or illicit drug abuse. The patient quit smoking about 10 years ago. [place], [place] REPORT OF CONSULTATION NAME: JOHN JONES UNIT #: [id number] ROOM: 403 DOCTOR: SATINDER FITZGERALD MD BIRTHDATE: [birth year] FAMILY HISTORY: There is no reported early family history of heart disease. CURRENT MEDICATIONS: As per chart. ALLERGIES: The patient is allergic to albuterol and prednisone. REVIEW OF SYSTEMS: Currently, the patient denies any headache, diplopia or blurry vision. The patient admits to chills, but no fever. The patient admits to nausea, vomiting, abdominal pain, but no bright red blood per rectum,. Admits to joint pain, but no muscular pain. No anxiety. No depression. No polyuria. No polydipsia. No skin rash. Review of all other systems has been negative. PHYSICAL EXAMINATION: VITAL SIGNS: Blood pressure 133/42, heart rate 64, respiratory rate of 16, temperature 98.3. GENERAL: The patient is alert, oriented x 3, quite pleasant. The patient is sitting flat in bed, does not appear in distress, reporting some improvement. HEENT: Extraocular muscles intact. Pupils equal, round, reactive to light. Conjunctivae: No pallor. Throat: No petechiae. NECK: Good upstroke. Unable to appreciate any bruit. No lymphadenopathy. No thyromegaly. HEART: S1, S2 with a faint holosystolic murmur left in upper sternal border, distant heart sounds. CHEST AND BACK: No deformities. LUNGS: Clear to auscultation. Slight decrease in air movement, but no raul wheezing or rales. ABDOMEN: Obese, soft, generalized tenderness present, active bowel sounds. Unable to appreciate any masses or bruit. This is a very limited exam. LOWER EXTREMITIES: There is no edema, with faint distal pulses. NEUROLOGIC: Grossly nonfocal. SKIN: No significant rash. LABORATORY DATA: White count 4.7, hemoglobin 12.7. There is no left shift. Neutrophil is 49%. Potassium still pending. SATINDER FITZGERALD MD CM:CONSTR:REPORT OF CONSULTATION 1059 05/17/17 0312 interface
--- NOTE | ~2017-05-16 | O ---
[place], [place] OPERATIVE NOTE [id number] UNIT #: [id number] ROOM: 403 DOCTOR: ELKIN VELASCO,DEBBI BIRTHDATE: [birth year] DOS: 05/18/2017 GASTROENDOSCOPIC REPORT INDICATION: The patient has presented with nausea, vomiting, undergoing investigation. PROCEDURE: Today's procedure part of investigation is panendoscopy plus biopsy. PREMEDICATION: Versed and Diprivan. SCOPE: Olympus forward-viewing gastroscope Q10 video. REPORT: After putting the patient in the left lateral position and after application of lubricant to the scope, the scope was introduced. Thereafter, under direct visualization, I advanced through the length of esophagus without difficulty. A 2 cm hiatal hernia photographed. Gastric pouch was entered, gastritis, gastric erosion seen. Antral biopsy obtained. Duodenal bulb, second and third part within normal limits. The patient extubated, tolerated procedure well. IMPRESSION: Mild gastritis, gastric erosion, small hiatal hernia. PLAN AND DISCUSSION: Continuation of Protonix 40 mg 1 every day. Antiemetics. Regular diet and we are going to add Florastor 250 mg p.o. b.i.d. while she is inpatient, to reculture her beneficial bacteria and clinical reassessment. Thank you very much indeed for your kind referral. DEBBI GRANGER MD CM:OPRECORD:OPERATIVE NOTE 1223 1406 DEBBI GRANGER MD 05/18/17 1537 interface
--- NOTE | ~2017-05-16 | O ---
[place], [place] OPERATIVE NOTE NAME: JOHN JONES UNIT #: [id number] ROOM: 403 DOCTOR: DEBBI GRANGER MD BIRTHDATE: [birth year] DOS: 05/18/2017 GASTROENDOSCOPIC REPORT INDICATIONS: This patient has presented with multiple medical complaints, among which has been nausea, vomiting, diarrhea; C. diff and ova and parasite has been negative. Stool cultures have been benign. Electrolytes, liver function tests and renal status are within normal limits. White blood cells 6.5, H and H of 12 and 36. PAST MEDICAL HISTORY: Obesity, hyperlipidemia, depression, COPD, history of C. diff colitis in the past and treatment, hypothyroidism, non-STEMI myocardial infarction. PAST SURGICAL HISTORY: Bronchoscopy, hysterectomy, polypectomies, rotator cuff repair. SOCIAL HISTORY: Former smoker, nonalcohol consumer. FAMILY HISTORY: Noncontributory. ALLERGIES: PREDNISONE AND ALBUTEROL. MEDICATIONS: List has been reviewed. PROCEDURE: Today's procedure part of investigation is panendoscopy and colonoscopy. PREMEDICATION: Versed and Diprivan. SCOPE: Olympus folding colonoscope 10L video. REPORT: After putting the patient in the left lateral position and after application of lubricant to rectal pouch and digital examination, scope was introduced. Thereafter, under direct visualization, I advanced through the length of colon without difficulty. Base of the cecum explored, appendiceal orifice identified, and ileocecal valve was defined. Scope was gradually withdrawn from base of cecum. As we approached the sigmoid colon, nonspecific segmental mild colitis which could be secondary to reactive diarrhea was noticed. However, biopsies obtained after photographic series. The patient extubated, tolerated the procedure well. IMPRESSION: Nonspecific segmental colitis from sigmoid colon, status post biopsy. PLAN: On discussion, we will proceed with panendoscopy. [place], [place] OPERATIVE NOTE NAME: ELISA JONESACE Lu UNIT #: [id number] ROOM: 403 DOCTOR: DEBBI GRANGER MD BIRTHDATE: [birth year] DEBBI GRANGER MD CM:OPRECORD:OPERATIVE NOTE 1223 1402 DEBBI GRANGER MD 05/18/17 1458 interface
--- NOTE | ~2017-05-16 | DS ---
[place], [place] DISCHARGE SUMMARY NAME: JOHN JONES [facility] #: [id number] UNIT #: [id number] ROOM: 403 DOCTOR: SEA ALBRECHT MD BIRTHDATE: [birth year] DOS: 05/17/2017 HOSPITAL COURSE: This patient was admitted on 05/16/2017 following an LAVH and RSO for reasons of chronic low back pain, retroverted retroflexed uterus, suspected adenomyosis, severe and worsening dysmenorrhea in a patient status post NovaSure who still is having some spotting and erratic bleeding. The patient previously had an LSO for a large ovarian cyst. The patient did undergo the LAVH-RSO on 05/16/2017 without significant complication and a very little blood loss. On postop day #1, the patient is ambulating well, tolerating regular diet, voiding well, passing flatus and overall states that she is feeling quite well. Her vital signs are stable. Her lungs and cardiac exam are stable. Her abdomen is soft, without distention. Her incisions are clean and dry. She has no significant vaginal discharge and her calves and IV site are stable. I reviewed in detail her operative findings as well as the discharge instructions and the patient did state understanding. She will increase diet and activity as tolerated, contact us should she have any complications as outlined in the discharge instructions and will follow up in 6 weeks. Was given Percocet 5/325 one p.o. q. 4-6 hours on a p.r.n. basis, #25 without refill. She also will use nonsteroidal anti-inflammatory agents on an as-needed basis. She will contact the office should she have any questions or issues as outlined in the discharge instructions. She will follow up again as I said in 6 weeks for her formal postop checkup. The patient did state understanding to the information provided and was discharged in satisfactory condition on 05/17/2017. SEA ALBRECHT MD CM:DISCHARG [id number] SEA ALBRECHT MD 05/17/17 0932 KEAGAN LANDRY.ESTRELLITA
[2017-05-16 09:14] LABS: BASO % 0.2 % (0.0-1.0); EOS % 0.2 % (1.0-4.0); MEAN CELL VOLUME 88.1 fl (81.0-99.0); MEAN CORPUSCULAR HGB 30.8 pg (27.0-31.0); MEAN PLATELET VOLUME 9.1 fl (9.6-12.3); MONO # 0.4 10*3/uL (0.1-1.0); NEUT % 78.3 % (47.0-73.0); PLATELET COUNT AUTOMATED 166 10*3/uL (130-400); RED BLOOD COUNT 4.54 10*6/uL (4.10-5.10); RED CELL DISTRI WIDTH 13.1 % (0-14.5); WHITE BLOOD COUNT 6.4 10*3/uL (4.8-10.8)
[2017-05-16 09:30] LABS: ALBUMIN 4.3 gm/dl (3.1-4.5); ALKALINE PHOSPHATASE 78 U/L (45-117); BILIRUBIN, TOTAL 0.4 mg/dl (0.2-1.0); BUN 11 mg/dl (7-24); CARBON DIOXIDE 28 mmol/L (21-32); CHLORIDE 105 mmol/L (98-107); EST GLOM FILT AFRICAN AMERICAN > 60 ml/min; GLUCOSE 145 mg/dL (65-99); MAGNESIUM 1.7 mg/dL (1.5-2.1); POTASSIUM 4.2 mmol/L (3.5-5.1); SGOT/AST 21 IU/L (3-35); SGPT/ALT 27 U/L (12-78); SODIUM 139 mmol/L (136-145); TOTAL PROTEIN 7.2 gm/dL (6.4-8.2)
[2017-05-16 09:41] LABS: TROPONIN I 0.765 ng/ml (<0.045)
[2017-05-16 10:02] LABS: BILIRUBIN 1+ (NEGATIVE); BLOOD TRACE-INTACT (NEGATIVE); CLARITY SL CLOUDY (CLEAR); COLOR YELLOW (YELLOW); GLUCOSE NEGATIVE (NEGATIVE); KETONE TRACE (NEGATIVE); LEUKO ESTERASE NEGATIVE (NEGATIVE); NITRITE NEGATIVE (NEGATIVE); PROTEIN 1+ (NEGATIVE); SPECIFIC GRAVITY 1.015 (1.005-1.030); UROBILINOGEN 0.2 E.U./dl (0.2-1.0)
[2017-05-16 10:14] LABS: URINE REFLEX COMMENT NO (NO)
[2017-05-16 10:15] LABS: BACTERIA TRACE; MUCOUS 1+
[2017-05-16] MEDS ORDERED: ASPIRIN CHEWABL81 MG PO (16:14)
[2017-05-16] MEDS ORDERED: Lopressor25 MG PO (16:37)
[2017-05-17] VITALS: BP 130/82
[2017-05-17] MEDS ORDERED: TIZANIDINE HCL4 MG PO (03:15)
[2017-05-17] MEDS ORDERED: DONEPEZIL HCL10 MG PO (06:28)
[2017-05-17] MEDS ORDERED: IMDUR SA30 MG PO (06:31)
[2017-05-17 07:23] LABS: BASO % 0.7 % (0.0-1.0); EOS # 0.1 10*3/uL (0.0-0.4); EOS % 2.7 % (1.0-4.0); HEMOGLOBIN 13.1 g/dl (12.0-16.0); LYMPH # 1.7 10*3/uL (1.3-4.4); LYMPH % 39.8 % (27.0-41.0); MEAN CELL VOLUME 90.3 fl (81.0-99.0); MEAN CORPUSCULAR HGB 30.3 pg (27.0-31.0); MEAN CORPUSCULAR HGB CONC 33.6 g/dl (33.0-37.0); MEAN PLATELET VOLUME 9.6 fl (9.6-12.3); MONO # 0.5 10*3/uL (0.1-1.0); MONO % 10.5 % (3.0-9.0); NEUT % 46.3 % (47.0-73.0); PLATELET COUNT AUTOMATED 149 10*3/uL (130-400); RED BLOOD COUNT 4.32 10*6/uL (4.10-5.10); RED CELL DISTRI WIDTH 13.2 % (0-14.5); WHITE BLOOD COUNT 4.4 10*3/uL (4.8-10.8)
[2017-05-17 07:53] LABS: ALBUMIN 3.6 gm/dl (3.1-4.5); BILIRUBIN, TOTAL 0.5 mg/dl (0.2-1.0); BUN 9 mg/dl (7-24); CARBON DIOXIDE 28 mmol/L (21-32); CHLORIDE 108 mmol/L (98-107); CHOLESTEROL 158 mg/dL (<200); EST GLOM FILT AFRICAN AMERICAN > 60 ml/min; GLUCOSE 93 mg/dL (65-99); PHOSPHOROUS 2.2 mg/dL (2.5-4.9); SGOT/AST 25 IU/L (3-35); SGPT/ALT 27 U/L (12-78); SODIUM 142 mmol/L (136-145); TOTAL PROTEIN 6.3 gm/dL (6.4-8.2); TRIGLYCERIDES 135 mg/dl (<150); VLDL CHOLESTEROL 27 mg/dL (6-40)
[2017-05-17 07:59] LABS: ALKALINE PHOSPHATASE 66 U/L (45-117); FREE T4 1.04 ng/dl (0.76-1.46); HDL CHOLESTEROL 45 mg/dl (40-60); LDL CHOLESTEROL 86 mg/dL (9-159); THYROID STIM HORMONE (HS) 0.585 uIU/ml (0.358-4.75)
[2017-05-17 08:00] VITALS: BP 104/66
[2017-05-17 08:04] LABS: HEMOGLOBIN A1c 5.3 % (4.8-5.6)
[2017-05-17 08:51] LABS: VITAMIN D, 25-HYDROXY 14.1 ng/mL (30-100)
[2017-05-17 08:52] LABS: FOLIC ACID 13.72 ng/mL (>5.38)
[2017-05-17 12:00] VITALS: BP 128/58
[2017-05-17 16:00] VITALS: BP 137/69
[2017-05-17 19:42] VITALS: BP 133/71
[2017-05-18] VITALS (8 sets, daily range): BP systolic 91–148; BP diastolic 36–75
[2017-05-18 04:46] LABS: BASO % 0.5 % (0.0-1.0); EOS # 0.2 10*3/uL (0.0-0.4); EOS % 2.8 % (1.0-4.0); HEMATOCRIT 36.5 % (37.0-47.0); HEMOGLOBIN 12.4 g/dl (12.0-16.0); LYMPH # 1.8 10*3/uL (1.3-4.4); LYMPH % 27.7 % (27.0-41.0); MEAN CELL VOLUME 89.9 fl (81.0-99.0); MEAN CORPUSCULAR HGB 30.5 pg (27.0-31.0); MEAN PLATELET VOLUME 9.3 fl (9.6-12.3); MONO # 0.7 10*3/uL (0.1-1.0); MONO % 10.1 % (3.0-9.0); NEUT # 3.8 10*3/uL (2.3-7.9); NEUT % 58.6 % (47.0-73.0); PLATELET COUNT AUTOMATED 147 10*3/uL (130-400); RED BLOOD COUNT 4.06 10*6/uL (4.10-5.10); RED CELL DISTRI WIDTH 13.2 % (0-14.5); WHITE BLOOD COUNT 6.5 10*3/uL (4.8-10.8)
[2017-05-18 05:15] LABS: ALBUMIN 3.6 gm/dl (3.1-4.5); BUN 7 mg/dl (7-24); CARBON DIOXIDE 26 mmol/L (21-32); CHLORIDE 107 mmol/L (98-107); EST GLOM FILT AFRICAN AMERICAN > 60 ml/min; GLUCOSE 93 mg/dL (65-99); POTASSIUM 3.5 mmol/L (3.5-5.1); SGOT/AST 25 IU/L (3-35); SGPT/ALT 28 U/L (12-78); SODIUM 141 mmol/L (136-145)
[2017-05-18 05:16] LABS: ALKALINE PHOSPHATASE 65 U/L (45-117); BILIRUBIN, TOTAL 0.5 mg/dl (0.2-1.0); TOTAL PROTEIN 6.3 gm/dL (6.4-8.2)
[2017-05-19] VITALS: BP 129/74
[2017-05-19 08:00] VITALS: BP 107/47
[2017-05-19 12:00] VITALS: BP 108/87
[2017-05-19 16:00] VITALS: BP 141/73
[2017-05-19] MEDS ORDERED: PANTOPRAZOLE SO40 MG PO (16:20)
[2017-05-19] MEDS ORDERED: VITAMIN D31000 UNIT PO (16:28)
== END 2017-05-19 17:35 | disposition home or self-care (01) | DRG 392 ==
LOC: ED 08:27 → 4E 14:31 → EDHOLD 14:31 → 4E 14:44
PROVIDERS: Emergency Medicine; Registered Nurse
PROC: 0DB68ZX Excision of Stomach, Via Natural or Artificial Opening Endoscopic, Diagnostic (ICD-10-PCS; principal; 2017-05-18)
PROC: 0DBN8ZX Excision of Sigmoid Colon, Via Natural or Artificial Opening Endoscopic, Diagnostic (ICD-10-PCS; 2017-05-18)
DX: K52.9 Noninfective gastroenteritis and colitis, unspecified (principal); J44.9 Chronic obstructive pulmonary disease, unspecified; E87.8 Other disorders of electrolyte and fluid balance, not elsewhere classified; E11.65 Type 2 diabetes mellitus with hyperglycemia; F32.9 Major depressive disorder, single episode, unspecified; E78.5 Hyperlipidemia, unspecified; F41.1 Generalized anxiety disorder; K21.9 Gastro-esophageal reflux disease without esophagitis; E03.9 Hypothyroidism, unspecified; N32.81 Overactive bladder; E66.9 Obesity, unspecified; E78.00 Pure hypercholesterolemia, unspecified; E55.9 Vitamin D deficiency, unspecified; K25.9 Gastric ulcer, unspecified as acute or chronic, without hemorrhage or perforation; K44.9 Diaphragmatic hernia without obstruction or gangrene; I25.2 Old myocardial infarction; Z90.49 Acquired absence of other specified parts of digestive tract; Z79.82 Long term (current) use of aspirin; Z79.899 Other long term (current) drug therapy; Z90.710 Acquired absence of both cervix and uterus; Z68.34 Body mass index [BMI] 34.0-34.9, adult; Z87.891 Personal history of nicotine dependence; Z83.6 Family history of other diseases of the respiratory system; Z82.49 Family history of ischemic heart disease and other diseases of the circulatory system; Z88.8 Allergy status to other drugs, medicaments and biological substances; Z79.84 Long term (current) use of oral hypoglycemic drugs

== ENCOUNTER → 2017-09-13 | Outpatient (CLI) | payer OTHER, MEDICAID ==
[~2017-09-13] MED LIST changes: +DONEPEZIL HCL10 MG PO; +IMDUR SA30 MG PO; +Lopressor25 MG PO; +PANTOPRAZOLE SO40 MG PO; +VITAMIN D31000 UNIT PO
== END | disposition home or self-care (01) ==
LOC: CT 08-31 09:00
DX: N28.1 Cyst of kidney, acquired (principal); N28.9 Disorder of kidney and ureter, unspecified; N93.9 Abnormal uterine and vaginal bleeding, unspecified; Z90.49 Acquired absence of other specified parts of digestive tract

== ENCOUNTER → 2017-09-28 | Outpatient (CLI) | payer OTHER, MEDICAID ==
[2017-09-28 16:33] LABS: BILIRUBIN NEGATIVE (NEGATIVE); BLOOD NEGATIVE (NEGATIVE); CLARITY CLEAR (CLEAR); COLOR YELLOW (YELLOW); GLUCOSE NEGATIVE (NEGATIVE); KETONE TRACE (NEGATIVE); LEUKO ESTERASE NEGATIVE (NEGATIVE); NITRITE NEGATIVE (NEGATIVE); PH 5.5 (5.0-9.0); UROBILINOGEN 0.2 E.U./dl (0.2-1.0)
[2017-09-28 16:59] LABS: EPITHELIAL CELLS 15-20; RBC 0-2 rbc/hpf (0-2); WBC 0-2 wbc/hpf (0-5)
[2017-09-28 17:00] LABS: BACTERIA TRACE
== END | disposition home or self-care (01) ==
LOC: LAB 15:10
PROVIDERS: Urology
DX: N39.0 Urinary tract infection, site not specified (principal)

== ENCOUNTER → 2017-11-25 | Outpatient (CLI) | payer OTHER, MEDICAID | END | disposition home or self-care (01) | LOC: RAD 11-16 13:30 | DX: Z13.820 Encounter for screening for osteoporosis (principal); N95.9 Unspecified menopausal and perimenopausal disorder ==

== ENCOUNTER 2018-02-19 19:25 | Inpatient (IN) | payer OTHER, MEDICAID ==
[~2018-02-19] VITALS: Ht 162.6 cm; Wt 86.4 kg
--- NOTE | ~2018-02-19 | PR ---
[place], [place] PROGRESS NOTE NAME: JOHN JONES [facility] #: [id number] UNIT #: [id number] ROOM: 407 DOCTOR: LEI CH MD,KAELA BIRTHDATE: [birth year] DOS: 02/21/2018 SUBJECTIVE: The patient has been noted severe cough, which remains mostly nonproductive with wheezing, was started on nebulized inhaled steroids. She had not been noted any symptoms of chest pain. The coughing remains without any change with minimal sputum expectoration. General weakness and fatigue were noted. Denies symptoms of headache, chest pain was reported with excessive cough lower portion of the chest wall. There were symptoms of nausea, vomiting, diarrhea. Denies any symptoms of edema or pain in lower extremities. Remaining systems were reviewed. They were noted all negative. PHYSICAL EXAMINATION: VITAL SIGNS: For the patient which have been recorded shows normal temperature, respirations 16, heart rate 54, blood pressure 100/59, pulse oxygen saturation on room air 94% saturation. HEENT: Examination shows head was atraumatic. Eyes nonicterus. NECK: Supple. CARDIOVASCULAR: S1, S2 audible without any added sounds. LUNGS: Examination of the lung were noted diffuse reduction in breath sounds bilaterally with moderate expiratory wheezing remains unchanged from previous examination. ABDOMEN: Soft, nontender, positive present. EXTREMITIES: Without any acute edema. MUSCULOSKELETAL: No acute deformities. CENTRAL NERVOUS SYSTEM: Cranial nerves 2-12 intact. SKIN: No lesions or rashes. LABORATORY DATA: The Gram stain of sputum from yesterday, moderate white blood cells, few epithelial cells, moderate gram-positive cocci in pairs, chains and clusters with few gram-negative bacilli, pending culture results. Blood culture from 02/19/2018 of this month showed no bacterial growth. The PT, PTT of the patient was noted as normal today. CMP of the patient this morning, normal BUN and creatinine, other electrolytes and the LFTs are normal. ESR for the patient was noted to have elevated at 55. C-reactive protein of 1.75. IMPRESSION: 1. The patient who has been currently noted with ongoing acute exacerbation of bronchial asthma. 2. Cavitary nodule in the left upper lobe for this patient as well. 3. The patient with history of allergy to the corticosteroids in the form of steroids and orally and intravenously causing ____ anxiety disorder. 4. Vzie-ik-pxxqogru obesity. PLAN OF MANAGEMENT: Bronchoscopy planned for patient to be done tomorrow morning, more accurate culture assessment will be done. It will also help to improve the wheezing for this patient. Reduction of the mucus plug present and removed with the help of bronchoscope. Other supportive therapy, plan of management and care plan. Additional treatment changes to be done based on the progression of the illness. [place], [place] PROGRESS NOTE [id number] #: [id number] ROOM: [facility] DOCTOR: KAELA ANDERSON MD BIRTHDATE: [birth year] KAELA ODOM MD CM:PNTRANS 1249 00 KAELA CH MD 02/21/18 190 interface
--- NOTE | ~2018-02-19 | PR ---
[place], [place] PROGRESS NOTE NAME: JOHN JONES [facility] #: [id number] UNIT #: [id number] ROOM: 407 DOCTOR: KAELA ANDERSON MD BIRTHDATE: [birth year] DOS: 02/22/2018 SUBJECTIVE: She has been noted to have similar symptoms of cough. The patient remains unchanged. Denies symptoms of chest pain or hemoptysis. Denies symptoms of abdominal pain. Denies symptoms of nausea, vomiting, diarrhea, abdominal pain. Denies any edema of the lower extremities. The patient has been continued get breathing treatment. The patient has been reordered. OBJECTIVE: VITAL SIGNS: For the patient, which have been recorded showed normal temperature, respiratory rate 16, heart rate 76, blood pressure 120/69. Pulse oxygen saturation of the patient noted as 94% on room air. HEENT: Examination shows head was atraumatic. Eyes nonicterus. NECK: Supple. CARDIOVASCULAR: S1, S2 audible. LUNGS: The patient was noted with lruc-fm-hpvceyxw decreased breath sounds, scattered crackles of the lungs. ABDOMEN: Soft with moderate obesity. Bowel sounds present. MUSCULOSKELETAL: Without any acute deformities. CENTRAL NERVOUS SYSTEM: Cranial nerves 2-12 intact. LABORATORY DATA: Culture of the sputum spontaneous, no bacterial growths. No other new labs were done. IMPRESSION: The patient who has been currently noted with the left upper lung pulmonary nodule. The patient with small cavitation 9 cm surrounded by the Halo for this patient. Various differentials has been considered including malignancy, acute and chronic infection including atypical infection and Mycobacterium as well. PLAN OF THERAPY: Proceed with the bronchoscopy as planned. No changes in the treatment for this patient at this time will be necessary. Any change of treatment for the patient if necessary will be done after the bronchoscopy. Usual care, other supportive plan of therapy and care plan. [place], [place] PROGRESS NOTE NAME: JOHN JONES Tabitha ACC #: [id number] UNIT #: [id number] ROOM: 407 DOCTOR: KAELA ANDERSON MD BIRTHDATE: [birth year] KAELA ODOM MD CM:PNTRANS 1312 1810 KAELA CH MD 02/22/18 1806 interface
--- NOTE | ~2018-02-19 | PR ---
[place], [place] PROGRESS NOTE NAME: JOHN JONES [facility] #: [id number] UNIT #: [id number] ROOM: 407 DOCTOR: LEI CH MD,KAELA BIRTHDATE: [birth year] DOS: 02/23/2018 PULMONARY PROGRESS NOTE SUBJECTIVE: The patient was noted comfortable at this time, resting on the bed. She has a bronchoscopy done yesterday. Wheezing for the patient and cough of the patient still persisted. She has transthoracic CT-guided needle aspiration biopsy of the lung nodule for the patient without any complications. Denies symptoms of nausea, vomiting, diarrhea or any abdominal pain. The patient denies symptoms of hematemesis or melena. Remaining systems were reviewed. They were noted all negative. Medications were reviewed, they were noted all negative. OBJECTIVE: VITAL SIGNS: For the patient which were recorded a normal temperature, respiratory rate 20, heart rate 60, blood pressure 150/53. The pulse oxygen saturation of the patient room air 94% saturation. HEENT: Examination shows head was atraumatic. Eye, nonicterus. NECK: Supple. CARDIOVASCULAR: S1, S2 audible. LUNGS: The patient was noted without any crackles. Expiratory wheezing noted, which is decreased from previous examination. Other resolution noted incomplete. ABDOMEN: Soft, nontender. EXTREMITIES: Without any acute edema. CENTRAL NERVOUS SYSTEM: Cranial nerves 2-12 intact. MUSCULOSKELETAL: Without any acute deformities. SKIN: No lesions or rashes. LABORATORY DATA: Bronchial washing for the patient were noted preliminary normal kalee. Final culture results were pending. Gram stain of the bronchial washing, moderate white blood cells with rare gram-positive cocci in pairs. The HIV screening test was noted negative. Aspergillus antibodies were negative as well. IMPRESSION: The patient with ongoing exacerbation of bronchial asthma with expiratory wheezing for the patient was still noted. The patient does not wish to use any corticosteroids, stating she is allergic to it. Actually, the patient has a side effect related to the corticosteroids more than any allergies. However, at this time, continue current medical management. PLAN OF TREATMENT: The biopsy of the left upper lobe sent for the routine cultures as well as viral and bacterial cultures and fungal cultures as well as cytology and pathology. The case was discussed with ____. At this time, no changes in other treatment of the patient will be needed. Continue current plan of management as well. Usual care, other supportive therapy plan of care. [place], [place] PROGRESS NOTE NAME: JONESJOHN UNIT #: [id number] ROOM: 407 DOCTOR: KAELA ANDERSON MD BIRTHDATE: [birth year] KAELA ODOM MD CM:RACHEL [id number] KAELA CH MD 02/23/18 1610 interface
--- NOTE | ~2018-02-19 | CON ---
[place], [place] REPORT OF CONSULTATION NAME: JOHN JONES [facility] #: [id number] UNIT #: [id number] ROOM: 407 DOCTOR: LEI CH MDKAELA BIRTHDATE: [birth year] DOS: 02/20/2018 PULMONARY CONSULTATION EVALUATION REASON FOR CONSULTATION: To assess the patient for abnormal respiratory symptoms and pulmonary nodule with cavitation noted in the right upper lobe as well. HISTORY OF PRESENT ILLNESS: This is a 72-year-old white female patient who has been admitted to the hospital under care of hospitalist service on 02/19/2018. The patient started having symptoms of increased shortness of breath, which has been occurring for the past few days with significant chest congestion, inability to expectorate sputum lately. She has been noted some sputum expectoration previously described as mucus. She has also reported symptoms of runny nose, purulent discharge from the left nostril, after hospitalization. The patient reported symptoms of having wheezing with significant tightness in the chest. There was no chest pain reported. She stated that she has been diagnosed with pneumonia, which has been treated with Augmentin for the patient for 5 days as well as received some prednisone as well. REVIEW OF SYSTEMS: CONSTITUTIONAL SYMPTOM: She was reporting symptoms of fatigue. There was no fever, but complains of cold chills. EYES: Denies any burning, redness, discharge or diplopia. THROAT: Denies sore throat, hoarseness, and otalgia, postnasal drainage, reported as purulent nasal discharge. CARDIOVASCULAR SYSTEM: Denies anginal pain, edema or pain of the lower extremities or palpitations or orthopnea. GASTROINTESTINAL: Abnormal weight loss, dysphagia, nausea, vomiting, diarrhea, abdominal pain, hematemesis, melena, or hematochezia. GENITOURINARY SYMPTOMS: No dysuria, suprapubic pain, hematuria. MUSCULOSKELETAL: The patient denies any symptoms of muscle pain, any joint pain, redness, or tenderness. SKIN: No abnormal lesions or rashes. CENTRAL NERVOUS SYSTEM: Denies dizziness, headache, diplopia, syncopal episodes. Remaining systems were reviewed. They were noted all negative. PAST MEDICAL HISTORY: 1. Reported with history of essential hypertension. 2. Hypothyroidism. 3. Anxiety and depression. 4. Essential hypertension. 5. Memory issues. 6. Gastroesophageal reflux. PAST SURGICAL HISTORY: 1. Cardiac cessation. 2. Therapeutic bronchoscopy in the past many years ago. [place], [place] REPORT OF CON[facility]ATION [facility] [id number] UNIT #: [id number] ROOM: 407 DOCTOR: LEI CH MD,KAELA BIRTHDATE: [birth year] 3. Cholecystectomy. 4. Colonoscopy. 5. Polypectomy. 6. Rotator cuff repair. SURGICAL HISTORY: Right rotator cuff surgery. SOCIAL HISTORY: The patient lives at home, she stated that she is single, has one child. Smoking noted since early teens patient pack of cigarettes per day that was discontinued approximately in 2005. Denies any history of alcohol use or any illicit drug use. FAMILY HISTORY: Dad was unknown. Mother at 87 years old, complication related to COPD. HOME MEDICATIONS: Per the patient, which were listed on admission, Celexa, levothyroxine, Valium, primidone, Inderal-LA, Zofran, [place], Lipitor, aspirin, Lopressor, Zanaflex and Aricept. DRUG ALLERGY HISTORY: THE PATIENT REPORTED ALLERGIES TO PENICILLIN CAUSING ANXIETY AND THE ALBUTEROL CAUSING ANXIETY WELL. PHYSICAL EXAMINATION: GENERAL: This is a 72-year-old female who has been currently noted comfortably on the bed. The patient without acute distress. Height of 5 feet 4 inches, weight of 190 pounds, BMI 32.7. VITAL SIGNS: The patient shows normal temperature since admission, respiratory rate 24-18, heart rate of 88-54, blood pressure 101/88, patient 105 and 57. The pulse oxygen saturation of the patient recorded on admission room air 98% saturation. HEENT: Mild to moderate obesity. Head was atraumatic. Eye nonicterus. NECK: Supple. CARDIOVASCULAR: S1, S2 is audible. LUNGS: Noted diffuse reduced breath sounds with expiratory wheezing in the lungs. There were no crackles. ABDOMEN: Soft with mild to moderate obesity. Bowel sounds present without tenderness. SKIN: No lesions or rashes. GENITOURINARY: The patient's cranial nerves 2-12 intact. No focal deficit. MUSCULOSKELETAL: No acute deformities. LABORATORY DATA: CBC on 02/19/2018, WBC count 4.4, remaining CBC was normal. Eosinophils noted at 5.2%. CMP on 02/19/2018, BUN 11, creatinine was normal, glucose 100. Troponin was normal. CBC of this morning looks count 3.5, hemoglobin 11.8, hematocrit 35.1, platelet count was normal. BMP this morning, normal BUN and creatinine including TSH. Chest x-ray that was done 1 view does not show an acute abnormalities except hyperinflation were noted. CT scan of the chest that was done, a CT on 02/19/2018, in the Emergency Room, the patient was personally reviewed shows a 9 mm nodule was noted in the left upper lobe with a Halo surrounding that. The patient was noted without any acute [place], [place] REPORT OF CONSULTATION NAME: JOHN JONES UNIT #: [id number] ROOM: 407 DOCTOR: LEI CH MD,KAELA BIRTHDATE: [birth year] abnormalities. There was no evidence of any significant lymphadenopathy. IMPRESSION: 1. The patient will be currently to the hospital. The patient noted resolving symptoms. The patient noted with eosinophilia as well as leukopenia, most likely finding consistent with acute bronchial asthma exacerbation with possibility of viral etiology with leukopenia. However, the leukopenia would be considered as well including any bone marrow issues. 2. Current partially cavitated nodule with a Halo noted surrounding the left upper lobe differential possible consideration of malignancy to be considered with central cavitation and infection including acute bacterial, fungal infections as well. Certainly, the patient not noted to severe issues of the patient suggestive of ongoing severe fungal infection, especially consideration for the Aspergillus. 3. History of tobacco use, which was discontinued in 2005. 4. History of "allergy" prednisone, anxiety disorder. PLAN OF THERAPY. The patient would be continuing bronchodilators and the antibiotics. Workup for the current abnormal lesion left upper lung with the ordered with serology for as the vasculitis. The patient would be also considered in the differential diagnosis. Because cavity nodules including septic embolism. The patient would be also started on the Pulmicort Respules because of allergy stated as an anxiety disorder, use of steroids. If the patient would not improve the current treatment certainly steroids need to be used for this patient. However, the decision will be made later on. The patient already started on the levalbuterol. Decreased sympathomimetic side effect related to the albuterol sulfate use. Other supportive therapy, plan of management and care plan. The patient strongly consider to get more accurate culture sent. Palpation of the lungs for the assessment or the infections. Viral panel was also ordered to exclude any viral insult. The patient resulting a leukopenia. The leukopenia, persistent, certainly hematology consultation should be obtained as well. Thanks for allowing me to participate in the care of this patient. KAELA ODOM MD CM:CONSTR:REPORT OF CONSULTATION 1252 02/20/18 [id number] interface
--- NOTE | ~2018-02-19 | PROC NOTE ---
[place], [place] PROCEDURE NOTE NAME: JOHN JONES [facility] #: [id number] UNIT #: [id number] ROOM: 407 DOCTOR: LEI CH MD,KAELA BIRTHDATE: [birth year] DOS: 02/22/2018 BRONCHOSCOPY PREOPERATIVE DIAGNOSES: Severe coughing. The patient has a nodule in the left upper lobe. POSTOPERATIVE DIAGNOSES: Tracheobronchitis as well. PROCEDURE DESCRIPTION: Informed consent obtained for the patient. She was brought to the OR and placed in supine position. Conscious sedation administered by the Anesthesia Department. After achieving proper sedation, airway introduced into the mouth. Bronchoscope advanced to the airway into laryngeal area. Epiglottis and vocal cords were seen. Vocal cords were moving symmetrically with the movement. Bronchoscope was advanced to the vocal cord and tracheal lumen, which shows small amount of secretion, which is mucoid, suctioned out with half a normal saline wash. Meg noted sharp. Right upper, right middle, right lower, left upper, lingular lower bronchi were all examined and patent. The secretion which is present, scattered in the endobronchial tree bilaterally, suctioned out. BAL specimen was also obtained from the left upper lobe endobronchial subsegment. Procedure was tolerated without difficulty. Postoperative finding will be discussed with the patient once the patient recover the effects of acute sedation. All the necessary cultures were sent from the bronchial washing and cell count differential for the BAL of left upper lobe. KAELA ODOM MD CM:PROCNOTE:PROCEDURE NOTE [id number] KAELA CH MD
--- NOTE | ~2018-02-19 | PR ---
[place], [place] PROGRESS NOTE [id number] UNIT #: [id number] ROOM: 407 DOCTOR: KAELA ANDERSON MD BIRTHDATE: [birth year] DOS: 02/24/2018 SUBJECTIVE: The patient is noted comfortable at this time with gradual reduction in respiratory symptoms. Denies symptoms of chest pain or any hemoptysis. The biopsy results of the patient's left upper lung nodule are pending. OBJECTIVE: VITAL SIGNS: For the patient, which have been recorded showed normal temperature, respiratory rate 16, heart rate 59, blood pressure 119/58. The pulse oxygen saturation on room air is 95%. HEENT: Head was atraumatic. Eyes nonicterus. NECK: Supple. CARDIOVASCULAR: S1, S2 is audible. LUNGS: Noted without any wheezing or crackles. ABDOMEN: Soft, nontender. EXTREMITIES: Without any acute edema. LABORATORY DATA: Culture of the bronchial washing of the patient were noted with no bacterial growths. ELY was noted negative. Serum ____ is noted mildly elevated at 3.2. Workup for the vasculitis was normal. IgG level noted mild to moderately decreased at 558 total level. IgE levels were noted as normal. Histoplasma antigen was negative. IMPRESSION: 1. The patient with biopsy of the left upper lung nodule with mild cavitation, exact etiology remains unclear. 2. Resolving acute exacerbation of bronchial asthma, progressive. 3. Chronic obesity. PLAN OF TREATMENT: The patient could be considered for home discharge oral medication. Outpatient followup would be established by the patient to discuss the results of the biopsy of the left upper lung nodule. The bronchodilator will be continued. [place], [place] PROGRESS NOTE NAME: ELISA JONESACE Lu UNIT #: [id number] ROOM: 407 DOCTOR: KAELA ANDERSON MD BIRTHDATE: [birth year] KAELA ODOM MD CM:PNTRANS [id number] KAELA CH MD 02/25/18 0036 interface
[2018-02-19 19:29] VITALS: BP 101/88
[2018-02-19 20:22] LABS: BASO % 0.2 % (0.0-1.0); EOS # 0.2 10*3/uL (0.0-0.4); EOS % 5.2 % (1.0-4.0); HEMATOCRIT 39.2 % (37.0-47.0); HEMOGLOBIN 13.3 g/dl (12.0-16.0); LYMPH # 1.5 10*3/uL (1.3-4.4); LYMPH % 34.6 % (27.0-41.0); MEAN CELL VOLUME 90.7 fl (81.0-99.0); MEAN CORPUSCULAR HGB 30.8 pg (27.0-31.0); MEAN CORPUSCULAR HGB CONC 33.9 g/dl (33.0-37.0); MEAN PLATELET VOLUME 9.5 fl (9.6-12.3); MONO # 0.5 10*3/uL (0.1-1.0); MONO % 10.9 % (3.0-9.0); NEUT # 2.1 10*3/uL (2.3-7.9); NEUT % 48.9 % (47.0-73.0); PLATELET COUNT AUTOMATED 169 10*3/uL (130-400); RED BLOOD COUNT 4.32 10*6/uL (4.10-5.10); WHITE BLOOD COUNT 4.4 10*3/uL (4.8-10.8)
[2018-02-19 20:40] VITALS: BP 97/47
[2018-02-19 20:40] LABS: ALBUMIN 3.9 gm/dl (3.1-4.5); ALKALINE PHOSPHATASE 72 U/L (45-117); BUN 11 mg/dl (7-24); CHLORIDE 103 mmol/L (98-107); CREATININE 0.81 mg/dL (0.55-1.02); POTASSIUM 4.4 mmol/L (3.5-5.1); SGOT/AST 29 IU/L (3-35); SGPT/ALT 33 U/L (12-78); SODIUM 139 mmol/L (136-145); TOTAL PROTEIN 7.3 gm/dL (6.4-8.2); TROPONIN I < 0.015 ng/ml (<0.045)
[2018-02-19 21:27] VITALS: BP 105/54
[2018-02-20] VITALS: BP 101/85
[2018-02-20 04:19] VITALS: BP 106/57
[2018-02-20 06:10] LABS: BUN 10 mg/dl (7-24); CHLORIDE 104 mmol/L (98-107); CREATININE 0.75 mg/dL (0.55-1.02); POTASSIUM 4.5 mmol/L (3.5-5.1); SODIUM 139 mmol/L (136-145)
[2018-02-20 06:15] LABS: BASO % 0.3 % (0.0-1.0); EOS # 0.2 10*3/uL (0.0-0.4); EOS % 6.4 % (1.0-4.0); HEMATOCRIT 35.1 % (37.0-47.0); HEMOGLOBIN 11.8 g/dl (12.0-16.0); LYMPH # 1.5 10*3/uL (1.3-4.4); LYMPH % 43.2 % (27.0-41.0); MEAN CELL VOLUME 91.4 fl (81.0-99.0); MEAN CORPUSCULAR HGB 30.7 pg (27.0-31.0); MEAN CORPUSCULAR HGB CONC 33.6 g/dl (33.0-37.0); MEAN PLATELET VOLUME 9.7 fl (9.6-12.3); MONO # 0.4 10*3/uL (0.1-1.0); MONO % 12.5 % (3.0-9.0); NEUT # 1.3 10*3/uL (2.3-7.9); NEUT % 37.3 % (47.0-73.0); PLATELET COUNT AUTOMATED 145 10*3/uL (130-400); RED BLOOD COUNT 3.84 10*6/uL (4.10-5.10); RED CELL DISTRI WIDTH 13.2 % (0-14.5); WHITE BLOOD COUNT 3.5 10*3/uL (4.8-10.8)
[2018-02-20 08:00] VITALS: BP 105/52
[2018-02-20 08:26] LABS: VITAMIN D, 25-HYDROXY 14.2 ng/mL (30-100)
[2018-02-20 12:00] VITALS: BP 110/64
[2018-02-20 16:00] VITALS: BP 104/45
[2018-02-20 20:00] VITALS: BP 158/79
[2018-02-21 00:33] VITALS: BP 138/64
[2018-02-21 08:00] VITALS: BP 100/59
[2018-02-21 08:11] LABS: IMMUNOGLOBULIN M, QNT 51 mg/dL (26-217); RHEUMATOID ARTHRITIS FACTOR 13.1 IU/mL (0.0-13.9)
[2018-02-21 09:11] LABS: BASO % 0.3 % (0.0-1.0); EOS # 0.2 10*3/uL (0.0-0.4); EOS % 5.5 % (1.0-4.0); HEMATOCRIT 34.3 % (37.0-47.0); HEMOGLOBIN 11.6 g/dl (12.0-16.0); LYMPH # 1.2 10*3/uL (1.3-4.4); LYMPH % 42.6 % (27.0-41.0); MEAN CELL VOLUME 92.2 fl (81.0-99.0); MEAN CORPUSCULAR HGB 31.2 pg (27.0-31.0); MEAN CORPUSCULAR HGB CONC 33.8 g/dl (33.0-37.0); MEAN PLATELET VOLUME 9.3 fl (9.6-12.3); MONO # 0.3 10*3/uL (0.1-1.0); MONO % 11.3 % (3.0-9.0); NEUT # 1.2 10*3/uL (2.3-7.9); PLATELET COUNT AUTOMATED 134 10*3/uL (130-400); RED BLOOD COUNT 3.72 10*6/uL (4.10-5.10); RED CELL DISTRI WIDTH 13.1 % (0-14.5); WHITE BLOOD COUNT 2.9 10*3/uL (4.8-10.8)
[2018-02-21 09:22] LABS: ACT PARTIAL THROMBO TIME 24.1 SECONDS (20.8-31.5); INTERNATIONAL NORM RATIO 0.9 (2.0-3.5)
[2018-02-21 09:28] LABS: ALBUMIN 3.3 gm/dl (3.1-4.5); BUN 12 mg/dl (7-24); CHLORIDE 107 mmol/L (98-107); CREATININE 0.71 mg/dL (0.55-1.02); POTASSIUM 4.4 mmol/L (3.5-5.1); SGOT/AST 20 IU/L (3-35); SGPT/ALT 26 U/L (12-78); SODIUM 143 mmol/L (136-145); TOTAL PROTEIN 6.4 gm/dL (6.4-8.2)
[2018-02-21 09:31] LABS: ALKALINE PHOSPHATASE 70 U/L (45-117)
[2018-02-21 12:00] VITALS: BP 102/53
[2018-02-21 13:08] LABS: ALDOLASE 002030 3.2 U/L (3.3-10.3); ANGIOTENSIN-CONVERTING ENZYME 25 U/L (14-82)
[2018-02-21 15:06] LABS: ATYPICAL PANCA <1:20 titer (Neg:<1:20); CYTOPLASMIC (C-ANCA) <1:20 titer (Neg:<1:20)
[2018-02-21 16:00] VITALS: BP 104/40
[2018-02-21 20:00] VITALS: BP 110/76; BP 97/87
[2018-02-22] VITALS (9 sets, daily range): BP systolic 95–120; BP diastolic 47–69
[2018-02-22 00:03] LABS: IGG SUBCLASS 1 296 mg/dL (248-810); IGG SUBCLASS 2 163 mg/dL (130-555); IGG SUBCLASS 3 117 mg/dL (15-102); IGG SUBCLASS 4 13 mg/dL (2-96); IMMUNOGLOBULIN G, QNT 558 mg/dL (700-1600)
[2018-02-22 12:18] LABS: BF LYMPHOCYTES 28 %; BF MACROPHAGES 67 %; BF NEUTROPHILS 5 %
[2018-02-22 13:04] LABS: ACID FAST SPEC PROCESSING Concentration (.)
[2018-02-23] VITALS: BP 158/53
[2018-02-23 06:12] LABS: HIV 1+2 AB + HIV1 P24 AG Non Reactive (Non Reactive)
[2018-02-23 08:00] VITALS: BP 96/52
[2018-02-23 12:00] VITALS: BP 98/60
[2018-02-23 15:06] LABS: ACID FAST SPEC PROCESSING Concentration (.)
[2018-02-23] MEDS ORDERED: NORCO 7.5-3251 EACH PO (15:40)
[2018-02-23] MEDS ORDERED: Xopenex NEB (15:42)
[2018-02-23 16:00] VITALS: BP 92/50
[2018-02-23 18:04] LABS: MITOGEN VALUE >10.00 IU/mL (.); TB Ag MINUS NIL VALUE 0.04 IU/mL (.); TB Ag VALUE 0.11 IU/mL (.); TB GOLD Negative (Negative)
[2018-02-23 20:00] VITALS: BP 119/59
[2018-02-23 22:05] LABS: IMMUNOGLOBULIN IgE 002170 2 IU/mL (0-100)
[2018-02-24] VITALS: BP 111/46
[2018-02-24 08:00] VITALS: BP 119/58
[2018-02-24] MEDS ORDERED: PULMICORT RESP0.5 MG NEB (09:40)
[2018-02-24] MEDS ORDERED: VITAMIN D-32000 UNIT PO (09:40)
[2018-02-24] MEDS ORDERED: LEVALBUTER0.63 MG/4 NEB (10:25)
[2018-02-24 14:05] LABS: ACID FAST SPEC PROCESSING Tissue Grinding (.)
== END 2018-02-24 12:30 | disposition home or self-care (01) | DRG 166 ==
LOC: ED 19:25 → 4E 22:58 → EDHOLD 22:58 → 4E 23:34
PROVIDERS: Hospitalist; Internal Medicine Critical Care Medicine; Internal Medicine Infectious Disease; Physician Assistant; Registered Nurse; Student in an Organized Health Care Education/Training Program
DX: J44.1 Chronic obstructive pulmonary disease with (acute) exacerbation (principal); J18.9 Pneumonia, unspecified organism; T17.590A Other foreign object in bronchus causing asphyxiation, initial encounter; D72.1 Eosinophilia; J45.901 Unspecified asthma with (acute) exacerbation; K21.9 Gastro-esophageal reflux disease without esophagitis; J44.0 Chronic obstructive pulmonary disease with (acute) lower respiratory infection; G25.0 Essential tremor; F32.9 Major depressive disorder, single episode, unspecified; N32.81 Overactive bladder; E78.00 Pure hypercholesterolemia, unspecified; E66.9 Obesity, unspecified; E55.9 Vitamin D deficiency, unspecified; R91.1 Solitary pulmonary nodule; D72.819 Decreased white blood cell count, unspecified; E66.8 Other obesity; R41.3 Other amnesia; I25.10 Atherosclerotic heart disease of native coronary artery without angina pectoris; F41.1 Generalized anxiety disorder; E03.9 Hypothyroidism, unspecified; I25.2 Old myocardial infarction; Z78.9 Other specified health status; Z90.49 Acquired absence of other specified parts of digestive tract; Z87.891 Personal history of nicotine dependence; Z83.6 Family history of other diseases of the respiratory system; Z88.8 Allergy status to other drugs, medicaments and biological substances; Z79.82 Long term (current) use of aspirin; Z79.899 Other long term (current) drug therapy; Z68.32 Body mass index [BMI] 32.0-32.9, adult; X58.XXXA Exposure to other specified factors, initial encounter; Y93.89 Activity, other specified; Y92.89 Other specified places as the place of occurrence of the external cause; Y99.8 Other external cause status

== ENCOUNTER 2018-05-07 17:05 | Inpatient (IN) | payer OTHER, MEDICAID ==
[~2018-05-07] VITALS: Ht 165.1 cm; Wt 92.6 kg
--- NOTE | ~2018-05-07 | PR ---
[place], [place] PROGRESS NOTE NAME: JOHN JONES UNIT #: [id number] ROOM: 532 DOCTOR: NICOLE VALERIO DPM BIRTHDATE: [birth year] DOS: 05/09/2018 ADDENDUM I saw the patient with the resident, Jama Montano and I agree with the resident's note. NICOLE VALERIO DPM CM:RACHEL [id number] NICOLE VALERIO DPM 05/11/18 0911 interface
[2018-05-07 17:05] VITALS: BP 106/51
[~2018-05-07 17:05] MED LIST changes: +LEVALBUTER0.63 MG/4 NEB; +PULMICORT RESP0.5 MG NEB; +VITAMIN D-32000 UNIT PO; +Xopenex NEB
[2018-05-07 17:27] LABS: HEMATOCRIT 41.1 % (37.0-47.0); HEMOGLOBIN 13.7 g/dl (12.0-16.0); MEAN CELL VOLUME 92.2 fl (81.0-99.0); MEAN CORPUSCULAR HGB 30.7 pg (27.0-31.0); MEAN CORPUSCULAR HGB CONC 33.3 g/dl (33.0-37.0); MEAN PLATELET VOLUME 9.9 fl (9.6-12.3); PLATELET COUNT AUTOMATED 130 10*3/uL (130-400); RED BLOOD COUNT 4.46 10*6/uL (4.10-5.10); RED CELL DISTRI WIDTH 12.9 % (0-14.5); WHITE BLOOD COUNT 4.1 10*3/uL (4.8-10.8)
[2018-05-07 17:34] LABS: ACT PARTIAL THROMBO TIME 23.6 SECONDS (20.8-31.5); INTERNATIONAL NORM RATIO 0.9 (2.0-3.5)
[2018-05-07 17:43] LABS: BUN 16 mg/dl (7-24); CHLORIDE 110 mmol/L (98-107); CREATININE 0.83 mg/dL (0.55-1.02); POTASSIUM 4.6 mmol/L (3.5-5.1); SODIUM 142 mmol/L (136-145)
[2018-05-07 17:44] LABS: TROPONIN I < 0.015 ng/ml (<0.045)
[2018-05-07 17:46] LABS: ATYPICAL LYMPHS 2 % (0-0); PLATELET SUFFICIENCY NORMAL (NORMAL); TOTAL CELLS COUNTED 100 #CELLS
[2018-05-07 18:15] VITALS: BP 110/58
[2018-05-07 18:37] VITALS: BP 119/57
[2018-05-07] MEDS ORDERED: QUETIAPINE FUMA50 M1 PO (20:17)
[2018-05-07] MEDS ORDERED: PRILOSEC20 M1 PO (22:39)
[2018-05-08 06:21] LABS: BASO % 0.7 % (0.0-1.0); EOS # 0.2 10*3/uL (0.0-0.4); EOS % 4.9 % (1.0-4.0); HEMATOCRIT 35.6 % (37.0-47.0); HEMOGLOBIN 11.8 g/dl (12.0-16.0); LYMPH % 45.4 % (27.0-41.0); MEAN CELL VOLUME 93.2 fl (81.0-99.0); MEAN CORPUSCULAR HGB 30.9 pg (27.0-31.0); MEAN CORPUSCULAR HGB CONC 33.1 g/dl (33.0-37.0); MEAN PLATELET VOLUME 9.8 fl (9.6-12.3); MONO # 0.4 10*3/uL (0.1-1.0); MONO % 9.5 % (3.0-9.0); NEUT # 1.7 10*3/uL (2.3-7.9); NEUT % 39.3 % (47.0-73.0); PLATELET COUNT AUTOMATED 117 10*3/uL (130-400); RED BLOOD COUNT 3.82 10*6/uL (4.10-5.10); WHITE BLOOD COUNT 4.3 10*3/uL (4.8-10.8)
[2018-05-08 06:28] LABS: BUN 19 mg/dl (7-24); CHLORIDE 109 mmol/L (98-107); CREATININE 0.84 mg/dL (0.55-1.02); POTASSIUM 4.5 mmol/L (3.5-5.1); SODIUM 142 mmol/L (136-145)
[2018-05-08 08:00] VITALS: BP 112/68
[2018-05-08 12:00] VITALS: BP 97/52
[2018-05-08 16:00] VITALS: BP 100/80
[2018-05-08 20:00] VITALS: BP 110/61
[2018-05-09] VITALS: BP 113/57
[2018-05-09 08:00] VITALS: BP 106/55
[2018-05-09 12:00] VITALS: BP 117/96
[2018-05-09 16:00] VITALS: BP 99/56
[2018-05-09 20:00] VITALS: BP 105/56
[2018-05-10] VITALS: BP 113/46
[2018-05-10 08:00] VITALS: BP 100/50
[2018-05-10 12:00] VITALS: BP 116/64
[2018-05-10] MEDS ORDERED: QUETIAPINE FUMA50 M1 PO (12:45)
[2018-05-10] MEDS ORDERED: DIAZEPAM5 MG PO (12:45)
[2018-05-10] MEDS ORDERED: HYDROCODONE-AC1 EAC1 PO (12:45)
[2018-05-10 16:00] VITALS: BP 115/55
[2018-05-10 20:00] VITALS: BP 126/82
[2018-05-11] VITALS: BP 97/49
[2018-05-11 06:18] LABS: BASO % 0.5 % (0.0-1.0); EOS # 0.2 10*3/uL (0.0-0.4); EOS % 5.9 % (1.0-4.0); HEMATOCRIT 37.5 % (37.0-47.0); HEMOGLOBIN 12.6 g/dl (12.0-16.0); LYMPH # 1.8 10*3/uL (1.3-4.4); MEAN CELL VOLUME 92.1 fl (81.0-99.0); MEAN CORPUSCULAR HGB CONC 33.6 g/dl (33.0-37.0); MEAN PLATELET VOLUME 9.6 fl (9.6-12.3); MONO # 0.4 10*3/uL (0.1-1.0); NEUT # 1.5 10*3/uL (2.3-7.9); NEUT % 38.3 % (47.0-73.0); PLATELET COUNT AUTOMATED 125 10*3/uL (130-400); RED BLOOD COUNT 4.07 10*6/uL (4.10-5.10); RED CELL DISTRI WIDTH 13.2 % (0-14.5); WHITE BLOOD COUNT 3.9 10*3/uL (4.8-10.8)
[2018-05-11 08:00] VITALS: BP 111/64
[2018-05-11 12:00] VITALS: BP 126/58
== END 2018-05-11 19:25 | disposition other institution (70) | DRG 563 ==
LOC: ED 17:05 → 5E 17:26 → EDHOLD 17:26 → 5E 18:01
PROVIDERS: Emergency Medicine; Student in an Organized Health Care Education/Training Program
DX: S82.892A Other fracture of left lower leg, initial encounter for closed fracture (principal); E03.9 Hypothyroidism, unspecified; E66.9 Obesity, unspecified; E78.00 Pure hypercholesterolemia, unspecified; F32.9 Major depressive disorder, single episode, unspecified; G25.0 Essential tremor; I10 Essential (primary) hypertension; K21.9 Gastro-esophageal reflux disease without esophagitis; F41.1 Generalized anxiety disorder; I25.10 Atherosclerotic heart disease of native coronary artery without angina pectoris; R26.2 Difficulty in walking, not elsewhere classified; S80.811A Abrasion, right lower leg, initial encounter; F41.9 Anxiety disorder, unspecified; Y92.009 Unspecified place in unspecified non-institutional (private) residence as the place of occurrence of the external cause; Z79.899 Other long term (current) drug therapy; I25.2 Old myocardial infarction; Z90.49 Acquired absence of other specified parts of digestive tract; Z83.6 Family history of other diseases of the respiratory system; Z79.82 Long term (current) use of aspirin; Z88.8 Allergy status to other drugs, medicaments and biological substances; Z87.891 Personal history of nicotine dependence; Z68.33 Body mass index [BMI] 33.0-33.9, adult; V87.8XXA Person injured in other specified noncollision transport accidents involving motor vehicle (traffic), initial encounter; Y93.89 Activity, other specified; Y99.8 Other external cause status

== ENCOUNTER → 2018-06-29 | Outpatient (CLI) | payer OTHER, MEDICAID ==
[~2018-06-29] MED LIST changes: +DIAZEPAM5 MG PO; +HYDROCODONE-AC1 EAC1 PO; +QUETIAPINE FUMA50 M1 PO
== END | disposition home or self-care (01) ==
LOC: US 11:21
DX: M79.604 Pain in right leg (principal); R60.0 Localized edema; M79.89 Other specified soft tissue disorders

== ENCOUNTER → 2018-07-19 | Outpatient (CLI) | payer OTHER | END | disposition home or self-care (01) | LOC: MRI 07-17 13:00 | DX: M48.061 Spinal stenosis, lumbar region without neurogenic claudication (principal) ==

== ENCOUNTER → 2018-12-06 | Outpatient (CLI) | payer OTHER, MEDICAID ==
[~2018-12-06] MED LIST changes: +ARICEPT5 M1 PO; +QUESTRAN LIGHT4 GM PO; +SEROQUEL100 MG PO
== END | disposition home or self-care (01) ==
LOC: RAD 14:46
DX: J40 Bronchitis, not specified as acute or chronic (principal); R05 Cough; R06.02 Shortness of breath; R09.89 Other specified symptoms and signs involving the circulatory and respiratory systems

== ENCOUNTER → 2019-02-28 | Outpatient (CLI) | payer OTHER, MEDICAID | END | disposition home or self-care (01) | LOC: LAB 12:23 | DX: R19.7 Diarrhea, unspecified (principal) ==

== ENCOUNTER → 2019-03-21 | Day surgery (SDC) | payer OTHER, MEDICAID ==
[~2019-03-21] VITALS: Ht 162.5 cm; Wt 94.3 kg
--- NOTE | ~2019-03-21 | O ---
[place], [place] OPERATIVE NOTE NAME: JOHN JONES Tabitha UNIT #: [id number] ROOM: DOCTOR: DEBBI GRANGER MD BIRTHDATE: [birth year] DOS: 03/21/2019 HISTORY OF PRESENT ILLNESS: This is a 73-year-old patient who was presented with chief complaint of diarrhea. Undergoing investigation. PAST MEDICAL HISTORY: Status post cholecystectomy. She is on multiple medications including 20 mg of Prilosec. SOCIAL HISTORY: Stopped smoking, nonalcohol consumer. PROCEDURE: Today's procedure part of investigation is colonoscopy, terminal ileoscopy. PREMEDICATION: Propofol. SCOPE: Olympus forward-viewing colonoscope 10L video. REPORT: After putting the patient in left lateral position and application of lubricant to the scope, the scope was introduced. Thereafter, under direct visualization, advanced through the length of colon without difficulty. Base of the cecum explored, appendiceal orifice identified, and the ileocecal valve was defined. Photographic series obtained. Terminal ileum was approached. Terminal ileoscopy was performed. There was no evidence of Crohn's disease. Random biopsies of the colon obtained. Air was suctioned out. Back to the sigmoid colon, a sessile polypoid lesion with piecemeal polypectomy removed. The patient was extubated, tolerated the procedure well. IMPRESSION: Sessile polypoid lesion in sigmoid colon, status post piecemeal polypectomy, status post multiple random biopsy from colon, status post terminal ileoscopy with normal finding endoscopically. PLAN AND DISCUSSION: This patient with a history of status post cholecystectomy, chronic diarrhea, negative stool studies. I am going to start her on Questran 1 pack a day, thinking that this could be bile salt diarrhea. We will see if clinically she is responding to above. If she is not, then further studies are going to be in progress. Awaiting at this time the results of the biopsies. [place], [place] OPERATIVE NOTE NAME: ROBERTJOHN R UNIT #: [id number] ROOM: DOCTOR: DEBBI GRANGER MD BIRTHDATE: [birth year] DEBBI GRANGER MD CM:OPRECORD:OPERATIVE NOTE 1004 [id number] DEBBI GRANGER MD 03/21/19 1105 interface
[2019-03-21 08:00] VITALS: BP 162/63
[2019-03-21 09:50] VITALS: BP 106/56
[2019-03-21 10:05] VITALS: BP 122/52
[2019-03-21 10:20] VITALS: BP 116/41
== END | disposition home or self-care (01) ==
LOC: SDC 03-16 10:15
DX: K63.5 Polyp of colon (principal); K63.89 Other specified diseases of intestine; K21.9 Gastro-esophageal reflux disease without esophagitis; F41.9 Anxiety disorder, unspecified; F32.9 Major depressive disorder, single episode, unspecified; E66.9 Obesity, unspecified; I25.10 Atherosclerotic heart disease of native coronary artery without angina pectoris; M19.90 Unspecified osteoarthritis, unspecified site; Z88.8 Allergy status to other drugs, medicaments and biological substances; Z90.49 Acquired absence of other specified parts of digestive tract; Z79.899 Other long term (current) drug therapy; Z95.5 Presence of coronary angioplasty implant and graft; Z68.35 Body mass index [BMI] 35.0-35.9, adult; Z87.891 Personal history of nicotine dependence; Z98.890 Other specified postprocedural states; Z82.49 Family history of ischemic heart disease and other diseases of the circulatory system

== ENCOUNTER → 2019-04-18 | Day surgery (SDC) | payer OTHER, MEDICAID ==
[~2019-04-18] VITALS: Ht 165.1 cm; Wt 97.1 kg
--- NOTE | ~2019-04-18 | O ---
[place], [place] OPERATIVE NOTE NAME: JOHN JONES UNIT #: [id number] ROOM: DOCTOR: DEBBI GRANGER MD BIRTHDATE: [birth year] DOS: 04/18/2019 GASTROENDOSCOPIC REPORT INDICATIONS: The patient has presented with chief complaint of dyspepsia, diarrhea, stool going through. She did not want to have a colonoscopy evaluation. PAST SURGICAL HISTORY: Cholecystectomy. SOCIAL HISTORY: Stopped smoking. Nonalcohol consumer. PROCEDURE: Today's procedure part of investigation of dyspepsia is panendoscopy plus biopsy. PREMEDICATION: Propofol. SCOPE: Olympus forward-viewing gastroscope Q10 video. REPORT: After putting the patient in left lateral position and application of lubricant to the scope, the scope was introduced. Thereafter, under direct visualization, advanced through the length of esophagus without difficulty. Very small hiatal hernia approximately 1 cm was noticed. Gastric pouch was entered. Mild gastritis seen. Antral biopsy obtained. Duodenal bulb, second and third part within normal limits. The patient was gradually extubated and tolerated the procedure well. IMPRESSION: Very small hiatal hernia, gastritis. PLAN AND DISCUSSION: The patient is already on omeprazole 20 mg b.i.d. We are going to advise elevation of the head of the bed at least 10 inches, Gaviscon Extra Strength 1 at bedtime and p.r.n. for acid breakthrough. Since the patient continues to have symptomatology of dyspepsia, we are going to change her PPI once the present supply is completed and Protonix 40 mg daily is going to be started. Thank you very much indeed for your kind referral. [place], [place] OPERATIVE NOTE NAME: ELISA JONESACE Lu UNIT #: [id number] ROOM: DOCTOR: DEBBI GRANGER MD BIRTHDATE: [birth year] DEBBI GRANGER MD CM:OPRECORD:OPERATIVE NOTE [id number] [id number] DEBBI GRANGER MD 04/25/19 1422 interface
[2019-04-18 10:51] VITALS: BP 105/59
[2019-04-18 11:32] VITALS: BP 119/70
[2019-04-18 11:47] VITALS: BP 126/57
[2019-04-18 12:02] VITALS: BP 129/57
== END | disposition home or self-care (01) ==
LOC: SDC 04-17 13:15
DX: K29.50 Unspecified chronic gastritis without bleeding (principal); K44.9 Diaphragmatic hernia without obstruction or gangrene; K21.9 Gastro-esophageal reflux disease without esophagitis; E66.9 Obesity, unspecified; M19.90 Unspecified osteoarthritis, unspecified site; J44.9 Chronic obstructive pulmonary disease, unspecified; F41.9 Anxiety disorder, unspecified; F32.9 Major depressive disorder, single episode, unspecified; Z87.891 Personal history of nicotine dependence; Z88.8 Allergy status to other drugs, medicaments and biological substances; Z98.890 Other specified postprocedural states; Z90.49 Acquired absence of other specified parts of digestive tract; Z79.899 Other long term (current) drug therapy; Z68.35 Body mass index [BMI] 35.0-35.9, adult; Z82.49 Family history of ischemic heart disease and other diseases of the circulatory system

== ENCOUNTER 2019-06-20 19:02 | Emergency (ER) | payer OTHER, MEDICAID ==
[~2019-06-20] VITALS: Ht 165.1 cm; Wt 98.9 kg
[2019-06-20 20:04] LABS: BASO % 0.3 % (0.0-1.0); EOS # 0.1 10*3/uL (0.0-0.4); EOS % 1.3 % (1.0-4.0); HEMATOCRIT 36.1 % (37.0-47.0); HEMOGLOBIN 12.2 g/dl (12.0-16.0); LYMPH # 1.3 10*3/uL (1.3-4.4); LYMPH % 15.8 % (27.0-41.0); MEAN CELL VOLUME 92.1 fl (81.0-99.0); MEAN CORPUSCULAR HGB 31.1 pg (27.0-31.0); MEAN CORPUSCULAR HGB CONC 33.8 g/dl (33.0-37.0); MONO # 0.5 10*3/uL (0.1-1.0); MONO % 6.4 % (3.0-9.0); NEUT % 75.9 % (47.0-73.0); PLATELET COUNT AUTOMATED 142 10*3/uL (130-400); RED BLOOD COUNT 3.92 10*6/uL (4.10-5.10); RED CELL DISTRI WIDTH 13.2 % (0-14.5); WHITE BLOOD COUNT 7.9 10*3/uL (4.8-10.8)
[2019-06-20 20:19] LABS: ALBUMIN 3.7 gm/dl (3.1-4.5); ALKALINE PHOSPHATASE 68 U/L (45-117); BUN 8 mg/dl (7-24); CHLORIDE 105 mmol/L (98-107); CREATININE 1.03 mg/dL (0.55-1.02); POTASSIUM 3.8 mmol/L (3.5-5.1); SGOT/AST 27 IU/L (3-35); SGPT/ALT 39 U/L (12-78); SODIUM 138 mmol/L (136-145); TOTAL PROTEIN 6.6 gm/dL (6.4-8.2)
[2019-06-20 21:09] LABS: BILIRUBIN NEGATIVE (NEGATIVE); BLOOD NEGATIVE (NEGATIVE); CLARITY CLEAR (CLEAR); COLOR YELLOW (YELLOW); GLUCOSE NEGATIVE (NEGATIVE); KETONE NEGATIVE (NEGATIVE); LEUKO ESTERASE 1+ (NEGATIVE); NITRITE NEGATIVE (NEGATIVE); PH 7.5 (5.0-9.0)
[2019-06-20 21:22] LABS: BACTERIA TRACE
[2019-06-20 23:10] VITALS: BP 101/46
== END 2019-06-20 23:14 | disposition home or self-care (01) ==
LOC: ED 19:02
PROVIDERS: Emergency Medicine
DX: B34.9 Viral infection, unspecified (principal); R50.9 Fever, unspecified; I25.10 Atherosclerotic heart disease of native coronary artery without angina pectoris; K21.9 Gastro-esophageal reflux disease without esophagitis; E78.00 Pure hypercholesterolemia, unspecified; I10 Essential (primary) hypertension; E03.9 Hypothyroidism, unspecified; I25.2 Old myocardial infarction; E66.9 Obesity, unspecified; Z68.39 Body mass index [BMI] 39.0-39.9, adult; Z90.49 Acquired absence of other specified parts of digestive tract; Z98.890 Other specified postprocedural states; Z87.891 Personal history of nicotine dependence; Z79.899 Other long term (current) drug therapy; Z88.6 Allergy status to analgesic agent

== ENCOUNTER 2019-08-01 15:31 | Emergency (ER) | payer OTHER, MEDICAID ==
[~2019-08-01] VITALS: Ht 165.1 cm; Wt 98.9 kg
[2019-08-01 15:33] VITALS: BP 126/60
== END 2019-08-01 16:42 | disposition home or self-care (01) ==
LOC: ED
DX: R60.0 Localized edema (principal); M79.661 Pain in right lower leg; I25.10 Atherosclerotic heart disease of native coronary artery without angina pectoris; J44.9 Chronic obstructive pulmonary disease, unspecified; K21.9 Gastro-esophageal reflux disease without esophagitis; E78.00 Pure hypercholesterolemia, unspecified; E03.9 Hypothyroidism, unspecified; E66.9 Obesity, unspecified; I10 Essential (primary) hypertension; Z79.899 Other long term (current) drug therapy; Z88.8 Allergy status to other drugs, medicaments and biological substances; Z68.34 Body mass index [BMI] 34.0-34.9, adult; Z87.891 Personal history of nicotine dependence

== ENCOUNTER → 2019-09-23 | Outpatient (CLI) | payer OTHER, MEDICAID | END | disposition home or self-care (01) | LOC: RAD 12:55 | DX: M54.6 Pain in thoracic spine (principal) ==

== ENCOUNTER → 2019-11-30 | Outpatient (CLI) | payer OTHER, MEDICAID | END | disposition home or self-care (01) | LOC: US 11-28 14:00 | DX: I82.409 Acute embolism and thrombosis of unspecified deep veins of unspecified lower extremity (principal); M79.661 Pain in right lower leg ==

== ENCOUNTER 2020-02-21 23:11 | Emergency (ER) | payer OTHER, MEDICAID ==
[~2020-02-21] VITALS: Ht 165.1 cm; Wt 99.8 kg
[2020-02-21 23:27] VITALS: BP 121/89
== END 2020-02-22 01:30 | disposition home or self-care (01) ==
LOC: ED 23:11
DX: S22.31XA Fracture of one rib, right side, initial encounter for closed fracture (principal); I25.10 Atherosclerotic heart disease of native coronary artery without angina pectoris; F32.9 Major depressive disorder, single episode, unspecified; J44.9 Chronic obstructive pulmonary disease, unspecified; E78.00 Pure hypercholesterolemia, unspecified; E03.9 Hypothyroidism, unspecified; Z88.8 Allergy status to other drugs, medicaments and biological substances; Z79.899 Other long term (current) drug therapy; Z90.49 Acquired absence of other specified parts of digestive tract; Z87.891 Personal history of nicotine dependence; W10.9XXA Fall (on) (from) unspecified stairs and steps, initial encounter; Y93.89 Activity, other specified; Y92.89 Other specified places as the place of occurrence of the external cause; Y99.8 Other external cause status

== ENCOUNTER → 2020-11-18 | Outpatient (CLI) | payer OTHER ==
[~2020-11-18] MED LIST changes: +NEURONTIN300 MG PO; +PENICILLIN VK500 MG PO; +PROPRANOLOL HCL20 M1 PO
== END | disposition home or self-care (01) ==
LOC: COVID19 14:40
PROVIDERS: ATTEND Dentist General Practice
DX: Z01.812 Encounter for preprocedural laboratory examination (principal); Z20.822 Contact with and (suspected) exposure to COVID-19

== ENCOUNTER → 2020-11-25 | Day surgery (SDC) | payer OTHER ==
[~2020-11-25] VITALS: Ht 157.4 cm; Wt 93.4 kg
[2020-11-25 07:45] VITALS: BP 124/53
[2020-11-25 10:27] VITALS: BP 144/88
[2020-11-25 10:40] VITALS: BP 137/52
[2020-11-25 10:55] VITALS: BP 126/70
[2020-11-25 11:10] VITALS: BP 136/75
[2020-11-25 12:27] VITALS: BP 124/71
== END ==
LOC: SDC 10-16 13:15
PROVIDERS: ATTEND Dentist General Practice
DX: K02.9 Dental caries, unspecified (principal); F41.9 Anxiety disorder, unspecified; F32.9 Major depressive disorder, single episode, unspecified; J01.40 Acute pansinusitis, unspecified; J40 Bronchitis, not specified as acute or chronic; K21.9 Gastro-esophageal reflux disease without esophagitis; Z87.891 Personal history of nicotine dependence; J44.9 Chronic obstructive pulmonary disease, unspecified; Z79.899 Other long term (current) drug therapy

== ENCOUNTER → 2021-01-08 | Outpatient (CLI) | payer OTHER | END | disposition home or self-care (01) | LOC: RAD 01-05 09:00 → CARD 01-06 12:00 | PROVIDERS: ATTEND Nurse Practitioner Primary Care | DX: M85.851 Other specified disorders of bone density and structure, right thigh (principal); R00.1 Bradycardia, unspecified; R07.89 Other chest pain; Z78.0 Asymptomatic menopausal state ==

== ENCOUNTER → 2021-01-29 | Outpatient (CLI) | payer OTHER | END | disposition home or self-care (01) | LOC: US 16:00 | PROVIDERS: ATTEND Nurse Practitioner Primary Care | DX: M79.89 Other specified soft tissue disorders (principal); M79.604 Pain in right leg ==

== ENCOUNTER 2021-06-22 15:13 | Inpatient (IN) | payer OTHER ==
[2021-06-22 15:19] VITALS: BP 111/44
[2021-06-22 15:45] LABS: BASO % 0.4 % (0.0-1.0); EOS # 0.1 10*3/uL (0.0-0.4); EOS % 2.4 % (1.0-4.0); HEMATOCRIT 41.5 % (37.0-47.0); LYMPH # 1.4 10*3/uL (1.3-4.4); LYMPH % 25.8 % (27.0-41.0); MEAN CELL VOLUME 88.9 fl (81.0-99.0); MEAN CORPUSCULAR HGB CONC 33.7 g/dl (33.0-37.0); MEAN PLATELET VOLUME 9.4 fl (9.6-12.3); MONO # 0.5 10*3/uL (0.1-1.0); MONO % 9.8 % (3.0-9.0); NEUT # 3.3 10*3/uL (2.3-7.9); NEUT % 61.4 % (47.0-73.0); PLATELET COUNT AUTOMATED 196 10*3/uL (130-400); RED BLOOD COUNT 4.67 10*6/uL (4.10-5.10); RED CELL DISTRI WIDTH 12.8 % (0-14.5); WHITE BLOOD COUNT 5.4 10*3/uL (4.8-10.8)
[2021-06-22 16:03] LABS: ALKALINE PHOSPHATASE 82 U/L (45-117); BUN 10 mg/dl (7-24); CHLORIDE 109 mmol/L (98-107); CREATININE 0.95 mg/dL (0.55-1.02); LIPASE 153 U/L (73-393); POTASSIUM 5.1 mmol/L (3.5-5.1); SGOT/AST 20 IU/L (3-35); SGPT/ALT 37 U/L (12-78); SODIUM 140 mmol/L (136-145); TOTAL PROTEIN 7.3 gm/dL (6.4-8.2)
[2021-06-22 16:05] LABS: ALBUMIN 4.2 gm/dl (3.1-4.5); TROPONIN I < 0.015 ng/ml (<0.045)
[2021-06-22 18:52] VITALS: BP 123/84
[2021-06-22 21:55] VITALS: BP 128/71
[2021-06-23] MEDS ORDERED: BACLOFEN20 M1 PO (03:41)
[2021-06-23] MEDS ORDERED: HYDROCODONE-AC1 EACH PO (03:42)
[2021-06-23] MEDS ORDERED: MELATONIN5 M1 SL (03:43)
[2021-06-23] MEDS ORDERED: HYDROXYZINE PAM25 M1 PO (03:44)
[2021-06-23] MEDS ORDERED: MINIPRESS1 M1 PO (03:44)
[2021-06-23] MEDS ORDERED: GOOD NEIGHBOR L10 MG PO (03:46)
[2021-06-23 04:00] VITALS: BP 110/68
[2021-06-23 05:19] LABS: ALBUMIN 3.7 gm/dl (3.1-4.5); BUN 13 mg/dl (7-24); CHLORIDE 110 mmol/L (98-107); CHOLESTEROL 130 mg/dL (<200); CREATININE 0.98 mg/dL (0.55-1.02); POTASSIUM 4.2 mmol/L (3.5-5.1); SGOT/AST 20 IU/L (3-35); SGPT/ALT 34 U/L (12-78); SODIUM 141 mmol/L (136-145); TOTAL PROTEIN 6.5 gm/dL (6.4-8.2)
[2021-06-23 05:22] LABS: ALKALINE PHOSPHATASE 64 U/L (45-117); LDL CHOLESTEROL 66 mg/dL (9-159); TRIGLYCERIDES 107 mg/dl (<150)
[2021-06-23 06:16] LABS: BASO % 0.4 % (0.0-1.0); EOS # 0.2 10*3/uL (0.0-0.4); EOS % 2.7 % (1.0-4.0); HEMATOCRIT 39.4 % (37.0-47.0); LYMPH % 36.4 % (27.0-41.0); MEAN CELL VOLUME 91.4 fl (81.0-99.0); MEAN CORPUSCULAR HGB 29.9 pg (27.0-31.0); MEAN CORPUSCULAR HGB CONC 32.7 g/dl (33.0-37.0); MONO # 0.6 10*3/uL (0.1-1.0); MONO % 10.4 % (3.0-9.0); NEUT # 2.7 10*3/uL (2.3-7.9); NEUT % 49.9 % (47.0-73.0); PLATELET COUNT AUTOMATED 172 10*3/uL (130-400); RED BLOOD COUNT 4.31 10*6/uL (4.10-5.10); RED CELL DISTRI WIDTH 12.8 % (0-14.5); WHITE BLOOD COUNT 5.5 10*3/uL (4.8-10.8)
[2021-06-23 07:26] LABS: VITAMIN D, 25-HYDROXY 32.4 ng/mL (30-100)
[2021-06-23 07:30] VITALS: BP 111/45
[2021-06-23 11:00] VITALS: BP 110/56
== END 2021-06-23 11:08 | disposition home or self-care (01) | DRG 310 ==
LOC: ED 15:13 → EDHOLD 16:45
PROVIDERS: Emergency Medicine; Hospitalist; ADMIT Student in an Organized Health Care Education/Training Program; ATTEND Student in an Organized Health Care Education/Training Program
DX: R00.1 Bradycardia, unspecified (principal); G25.0 Essential tremor; N32.81 Overactive bladder; I10 Essential (primary) hypertension; K21.9 Gastro-esophageal reflux disease without esophagitis; F41.1 Generalized anxiety disorder; F32.9 Major depressive disorder, single episode, unspecified; J44.9 Chronic obstructive pulmonary disease, unspecified; R30.0 Dysuria; Z88.8 Allergy status to other drugs, medicaments and biological substances; Z79.899 Other long term (current) drug therapy; Z82.5 Family history of asthma and other chronic lower respiratory diseases; Z90.49 Acquired absence of other specified parts of digestive tract; Z87.891 Personal history of nicotine dependence; Z79.1 Long term (current) use of non-steroidal anti-inflammatories (NSAID)

== ENCOUNTER → 2021-12-14 | Outpatient (CLI) | payer OTHER ==
[~2021-12-14] MED LIST changes: +BACLOFEN20 M1 PO; +GOOD NEIGHBOR L10 MG PO; +HYDROCODONE-AC1 EACH PO; +HYDROXYZINE PAM25 M1 PO; +MELATONIN5 M1 SL; +MINIPRESS1 M1 PO
== END | disposition home or self-care (01) ==
LOC: MRI 10:00
PROVIDERS: ATTEND Nurse Practitioner Gerontology
DX: M47.816 Spondylosis without myelopathy or radiculopathy, lumbar region (principal); M48.061 Spinal stenosis, lumbar region without neurogenic claudication

== ENCOUNTER 2021-12-27 21:20 | Emergency (ER) | payer OTHER ==
[~2021-12-27] VITALS: Ht 165.1 cm; Wt 88.5 kg
[2021-12-27 21:43] VITALS: BP 170/78
[2021-12-27 21:57] LABS: BASO % 0.2 % (0.0-1.0); EOS # 0.1 10*3/uL (0.0-0.4); EOS % 2.4 % (1.0-4.0); HEMATOCRIT 39.6 % (37.0-47.0); LYMPH # 1.6 10*3/uL (1.3-4.4); LYMPH % 29.5 % (27.0-41.0); MEAN CORPUSCULAR HGB 29.2 pg (27.0-31.0); MEAN CORPUSCULAR HGB CONC 34.3 g/dl (33.0-37.0); MONO # 0.3 10*3/uL (0.1-1.0); MONO % 6.4 % (3.0-9.0); NEUT # 3.3 10*3/uL (2.3-7.9); NEUT % 61.3 % (47.0-73.0); PLATELET COUNT AUTOMATED 198 10*3/uL (130-400); RED BLOOD COUNT 4.66 10*6/uL (4.10-5.10); RED CELL DISTRI WIDTH 12.7 % (0-14.5); WHITE BLOOD COUNT 5.3 10*3/uL (4.8-10.8)
[2021-12-27 22:15] LABS: ALKALINE PHOSPHATASE 62 U/L (45-117); BUN 12 mg/dl (7-24); CHLORIDE 111 mmol/L (98-107); CREATININE 0.94 mg/dL (0.55-1.02); POTASSIUM 3.2 mmol/L (3.5-5.1); SGOT/AST 22 IU/L (3-35); SGPT/ALT 31 U/L (12-78); SODIUM 142 mmol/L (136-145); TOTAL PROTEIN 7.5 gm/dL (6.4-8.2)
[2021-12-28 00:13] LABS: BILIRUBIN Negative (Negative); BLOOD Negative (Negative); CLARITY Clear (Clear); COLOR Yellow (Yellow); GLUCOSE Negative (Negative); KETONE Trace (Negative); LEUKO ESTERASE 1+ (Negative); NITRITE Negative (Negative); SPECIFIC GRAVITY 1.025 (1.001-1.030)
[2021-12-28 00:23] LABS: BACTERIA 1+
[2021-12-28] MEDS ORDERED: MECLIZINE HCL25 M2 PO (03:23)
[2021-12-28] MEDS ORDERED: ZOFRAN4 MG PO (03:23)
== END 2021-12-28 03:27 | disposition home or self-care (01) ==
LOC: ED 21:20
PROVIDERS: Internal Medicine
DX: B34.9 Viral infection, unspecified (principal); E87.6 Hypokalemia; R42 Dizziness and giddiness; Z88.8 Allergy status to other drugs, medicaments and biological substances; Z79.899 Other long term (current) drug therapy; Z90.49 Acquired absence of other specified parts of digestive tract; Z98.890 Other specified postprocedural states; Z87.891 Personal history of nicotine dependence

== ENCOUNTER 2022-05-22 15:47 | Emergency (ER) | payer OTHER ==
[~2022-05-22] VITALS: Ht 162.5 cm; Wt 89.4 kg
[~2022-05-22 15:47] MED LIST changes: +MECLIZINE HCL25 M2 PO
[2022-05-22 16:03] VITALS: BP 147/70
[2022-05-22] MEDS ORDERED: KENALOG 0.025%15 GM T (16:17)
[2022-05-22] MEDS ORDERED: BENADRYL ALLERG25 M5 PO (16:17)
[2022-05-22] MEDS ORDERED: PEPCID20 MG PO (16:17)
== END 2022-05-22 16:27 | disposition home or self-care (01) ==
LOC: ED 15:47
DX: L23.9 Allergic contact dermatitis, unspecified cause (principal); Z88.8 Allergy status to other drugs, medicaments and biological substances; Z79.899 Other long term (current) drug therapy; Z90.49 Acquired absence of other specified parts of digestive tract; Z98.890 Other specified postprocedural states; Z87.891 Personal history of nicotine dependence

== ENCOUNTER 2022-09-06 16:12 | Emergency (ER) | payer OTHER ==
[~2022-09-06] VITALS: Ht 162.5 cm; Wt 93.0 kg
[~2022-09-06 16:12] MED LIST changes: +BENADRYL ALLERG25 M5 PO; +KENALOG 0.025%15 GM T; +PEPCID20 MG PO
[2022-09-06 16:27] VITALS: BP 130/83
[2022-09-06 17:15] LABS: BASO % 0.5 % (0.0-1.0); EOS # 0.2 10*3/uL (0.0-0.4); EOS % 5.4 % (1.0-4.0); HEMATOCRIT 40.9 % (37.0-47.0); LYMPH # 1.4 10*3/uL (1.3-4.4); LYMPH % 32.6 % (27.0-41.0); MEAN CELL VOLUME 89.7 fl (81.0-99.0); MEAN CORPUSCULAR HGB 29.6 pg (27.0-31.0); MEAN PLATELET VOLUME 8.9 fl (9.6-12.3); MONO # 0.4 10*3/uL (0.1-1.0); MONO % 8.9 % (3.0-9.0); NEUT # 2.2 10*3/uL (2.3-7.9); NEUT % 52.4 % (47.0-73.0); PLATELET COUNT AUTOMATED 138 10*3/uL (130-400); RED BLOOD COUNT 4.56 10*6/uL (4.10-5.10); RED CELL DISTRI WIDTH 12.8 % (0-14.5); WHITE BLOOD COUNT 4.3 10*3/uL (4.8-10.8)
[2022-09-06 17:26] LABS: INTERNATIONAL NORM RATIO 0.9 (2.0-3.5)
[2022-09-06 17:41] LABS: ALKALINE PHOSPHATASE 71 U/L (45-117); BUN 10 mg/dl (7-24); CHLORIDE 109 mmol/L (98-107); CREATININE 1.01 mg/dL (0.55-1.02); POTASSIUM 4.3 mmol/L (3.5-5.1); SGPT/ALT 26 U/L (12-78); SODIUM 139 mmol/L (136-145)
[2022-09-06] MEDS ORDERED: CEPHALEXIN500 M1 PO (18:07)
== END 2022-09-06 18:18 | disposition home or self-care (01) ==
LOC: ED 16:12
PROVIDERS: Physician Assistant
DX: M79.604 Pain in right leg (principal); Z88.8 Allergy status to other drugs, medicaments and biological substances; Z79.899 Other long term (current) drug therapy; Z98.890 Other specified postprocedural states; Z87.891 Personal history of nicotine dependence

== ENCOUNTER 2023-01-14 19:06 | Inpatient (IN) | payer MEDICARE, OTHER ==
[~2023-01-14] VITALS: Ht 165.1 cm; Wt 93.7 kg
[2023-01-14 19:06] VITALS: BP 108/64
[~2023-01-14 19:06] MED LIST changes: +ATORVASTATIN CA20 M1 PO; +BENZONATATE100 M1 PO; +CEPHALEXIN500 M1 PO; +METOPROLOL SUCC25 M2 PO; +MYRBETRIQ50 M1 PO; +SEROQUEL50 MG PO; +VANCOMYCIN HCL125 MG PO; +VISTARIL25 MG PO; +XARE20MG PO
[2023-01-14 19:49] LABS: BASO % 0.2 % (0.0-1.0); EOS # 0.1 10*3/uL (0.0-0.4); EOS % 0.7 % (1.0-4.0); HEMATOCRIT 44.4 % (37.0-47.0); LYMPH # 2.2 10*3/uL (1.3-4.4); MEAN CELL VOLUME 84.1 fl (81.0-99.0); MEAN CORPUSCULAR HGB 28.8 pg (27.0-31.0); MEAN CORPUSCULAR HGB CONC 34.2 g/dl (33.0-37.0); MEAN PLATELET VOLUME 9.3 fl (9.6-12.3); MONO # 0.9 10*3/uL (0.1-1.0); MONO % 9.8 % (3.0-9.0); NEUT # 5.9 10*3/uL (2.3-7.9); NEUT % 65.1 % (47.0-73.0); PLATELET COUNT AUTOMATED 229 10*3/uL (130-400); RED BLOOD COUNT 5.28 10*6/uL (4.10-5.10)
[2023-01-14 20:05] LABS: POTASSIUM 2.7 mmol/L (3.4-5.1); TOTAL PROTEIN 8.3 gm/dL (6.0-8.0)
[2023-01-14 22:24] VITALS: BP 125/57
[2023-01-14 22:37] LABS: BILIRUBIN Negative (Negative); BLOOD Trace-Lysed (Negative); CLARITY Clear (Clear); COLOR Yellow (Yellow); GLUCOSE Negative (Negative); KETONE Negative (Negative); LEUKO ESTERASE Trace (Negative); NITRITE Negative (Negative); PH 6.5 (4.5-8.0); UROBILINOGEN 0.2 E.U./dl (0.0-1.0)
[2023-01-14 22:41] LABS: BACTERIA 1+
[2023-01-14 23:16] VITALS: BP 101/51
[2023-01-14] MEDS ORDERED: FUROSEMIDE40 MG PO (23:43)
[2023-01-14] MEDS ORDERED: Metolazone5 MG PO (23:44)
[2023-01-14] MEDS ORDERED: HYDROCODONE-AC1 EACH PO (23:45)
[2023-01-14] MEDS ORDERED: BACLOFEN5 MG PO (23:50)
[2023-01-14] MEDS ORDERED: DIAZEPAM5 MG PO (23:52)
[2023-01-15] MEDS ORDERED: FLORAJEN ACIDO1 EACH PO (02:51)
[2023-01-15] MEDS ORDERED: POTASSIUM CHLO20 ME4 PO (02:53)
[2023-01-15 03:14] VITALS: BP 128/66
[2023-01-15 06:12] VITALS: BP 106/54
[2023-01-15 06:48] LABS: BASO % 0.2 % (0.0-1.0); EOS # 0.1 10*3/uL (0.0-0.4); HEMATOCRIT 38.4 % (37.0-47.0); LYMPH # 1.7 10*3/uL (1.3-4.4); LYMPH % 31.5 % (27.0-41.0); MEAN CELL VOLUME 85.5 fl (81.0-99.0); MEAN CORPUSCULAR HGB 29.6 pg (27.0-31.0); MEAN CORPUSCULAR HGB CONC 34.6 g/dl (33.0-37.0); MEAN PLATELET VOLUME 9.2 fl (9.6-12.3); MONO # 0.6 10*3/uL (0.1-1.0); MONO % 11.5 % (3.0-9.0); NEUT % 54.4 % (47.0-73.0); RED BLOOD COUNT 4.49 10*6/uL (4.10-5.10); RED CELL DISTRI WIDTH 13.2 % (0-14.5); WHITE BLOOD COUNT 5.5 10*3/uL (4.8-10.8)
[2023-01-15 06:49] LABS: PLATELET COUNT AUTOMATED 148 10*3/uL (130-400)
[2023-01-15 07:20] LABS: FREE T4 1.09 ng/dl (0.89-1.76); POTASSIUM 2.9 mmol/L (3.4-5.1); THYROID STIM HORMONE (HS) 3.012 uIU/ml (0.550-4.780); TOTAL PROTEIN 6.6 gm/dL (6.0-8.0)
[2023-01-15 07:43] VITALS: BP 97/57
[2023-01-15 08:46] VITALS: BP 121/65
[2023-01-15 15:10] VITALS: BP 115/57
[2023-01-15 20:00] VITALS: BP 114/58
[2023-01-16] VITALS: BP 107/46
[2023-01-16 05:00] LABS: POTASSIUM 3.5 mmol/L (3.4-5.1)
[2023-01-16 06:28] LABS: BASO % 0.4 % (0.0-1.0); EOS # 0.3 10*3/uL (0.0-0.4); HEMATOCRIT 35.6 % (37.0-47.0); LYMPH # 1.6 10*3/uL (1.3-4.4); LYMPH % 31.6 % (27.0-41.0); MEAN CORPUSCULAR HGB 30.2 pg (27.0-31.0); MEAN CORPUSCULAR HGB CONC 33.7 g/dl (33.0-37.0); MEAN PLATELET VOLUME 9.7 fl (9.6-12.3); MONO # 0.6 10*3/uL (0.1-1.0); MONO % 12.5 % (3.0-9.0); NEUT # 2.5 10*3/uL (2.3-7.9); NEUT % 50.3 % (47.0-73.0); PLATELET COUNT AUTOMATED 134 10*3/uL (130-400); RED BLOOD COUNT 3.98 10*6/uL (4.10-5.10); RED CELL DISTRI WIDTH 13.3 % (0-14.5)
[2023-01-16 06:35] LABS: MEAN CELL VOLUME 89.4 fl (81.0-99.0)
[2023-01-16 08:00] VITALS: BP 116/60
[2023-01-16 12:00] VITALS: BP 142/61
[2023-01-16 16:00] VITALS: BP 115/58
[2023-01-16 20:00] VITALS: BP 96/66
[2023-01-17] VITALS: BP 141/60
[2023-01-17 07:04] LABS: POTASSIUM 3.2 mmol/L (3.4-5.1)
[2023-01-17 08:00] VITALS: BP 119/75
[2023-01-17] MEDS ORDERED: TRIMETHOPRIM OPH (11:11)
[2023-01-17] MEDS ORDERED: MUCINEX1200 M1 PO (11:11)
[2023-01-17] MEDS ORDERED: [UNRECOGNIZED DRUG - OTHER] OPH (11:11)
== END 2023-01-17 17:34 | disposition home or self-care (01) | DRG 177 ==
LOC: ED 19:06 → EDHOLD 01-15 02:24 → 4E 01-15 02:24
PROVIDERS: Family Medicine; Internal Medicine; Physician Assistant; ADMIT Family Medicine; ATTEND Family Medicine
DX: U07.1 COVID-19 (principal); J96.01 Acute respiratory failure with hypoxia; N17.0 Acute kidney failure with tubular necrosis; M54.50 Low back pain, unspecified; E80.6 Other disorders of bilirubin metabolism; R74.01 Elevation of levels of liver transaminase levels; K76.0 Fatty (change of) liver, not elsewhere classified; J44.9 Chronic obstructive pulmonary disease, unspecified; Z20.822 Contact with and (suspected) exposure to COVID-19; F32.A Depression, unspecified; I25.10 Atherosclerotic heart disease of native coronary artery without angina pectoris; R73.9 Hyperglycemia, unspecified; E87.6 Hypokalemia; K25.9 Gastric ulcer, unspecified as acute or chronic, without hemorrhage or perforation; F41.1 Generalized anxiety disorder; E55.9 Vitamin D deficiency, unspecified; I10 Essential (primary) hypertension; E03.9 Hypothyroidism, unspecified; G25.0 Essential tremor; K21.9 Gastro-esophageal reflux disease without esophagitis; Z90.49 Acquired absence of other specified parts of digestive tract; Z87.891 Personal history of nicotine dependence; Z82.5 Family history of asthma and other chronic lower respiratory diseases; Z79.51 Long term (current) use of inhaled steroids; Z79.899 Other long term (current) drug therapy; Z79.1 Long term (current) use of non-steroidal anti-inflammatories (NSAID); I25.2 Old myocardial infarction

== ENCOUNTER → 2023-01-21 | Outpatient (CLI) | payer MEDICARE, OTHER ==
[~2023-01-21] MED LIST changes: +BACLOFEN5 MG PO; +FLORAJEN ACIDO1 EACH PO; +FUROSEMIDE40 MG PO; +MUCINEX1200 M1 PO; +Metolazone5 MG PO; +POTASSIUM CHLO20 ME4 PO; +TRIMETHOPRIM OPH; +[UNRECOGNIZED DRUG - OTHER] OPH
== END | disposition home or self-care (01) ==
LOC: US 12:34
PROVIDERS: ATTEND Physician Assistant
DX: R60.0 Localized edema (principal); L03.119 Cellulitis of unspecified part of limb

== ENCOUNTER → 2023-04-07 | Outpatient (CLI) | payer MEDICARE, OTHER | END | disposition home or self-care (01) | LOC: CARD 02-21 01:14 | PROVIDERS: ATTEND Internal Medicine Cardiovascular Disease | DX: I35.0 Nonrheumatic aortic (valve) stenosis (principal); I48.0 Paroxysmal atrial fibrillation ==

== ENCOUNTER 2023-07-26 18:59 | Emergency (ER) | payer MEDICARE, OTHER ==
[~2023-07-26] VITALS: Ht 162.5 cm; Wt 90.7 kg
[2023-07-26 19:48] VITALS: BP 148/68
[2023-07-26] MEDS ORDERED: MELATONIN1 M6 PO (19:50)
[2023-07-26 20:20] LABS: BASO % 0.4 % (0.0-1.0); EOS # 0.2 10*3/uL (0.0-0.4); EOS % 3.8 % (1.0-4.0); HEMATOCRIT 37.2 % (37.0-47.0); LYMPH # 1.6 10*3/uL (1.3-4.4); LYMPH % 28.4 % (27.0-41.0); MEAN CELL VOLUME 87.5 fl (81.0-99.0); MEAN CORPUSCULAR HGB 29.9 pg (27.0-31.0); MEAN CORPUSCULAR HGB CONC 34.1 g/dl (33.0-37.0); MEAN PLATELET VOLUME 9.2 fl (9.6-12.3); MONO # 0.5 10*3/uL (0.1-1.0); MONO % 9.2 % (3.0-9.0); NEUT # 3.2 10*3/uL (2.3-7.9); PLATELET COUNT AUTOMATED 174 10*3/uL (130-400); RED BLOOD COUNT 4.25 10*6/uL (4.10-5.10); RED CELL DISTRI WIDTH 13.7 % (0-14.5); WHITE BLOOD COUNT 5.5 10*3/uL (4.8-10.8)
[2023-07-26 20:42] LABS: BUN 19 mg/dl (9-23); CHLORIDE 106 mmol/L (98-107); POTASSIUM 4.4 mmol/L (3.4-5.1)
[2023-07-26] MEDS ORDERED: NAPROXEN250 MG PO (21:16)
== END 2023-07-26 21:44 | disposition home or self-care (01) ==
LOC: ED 18:59
PROVIDERS: Internal Medicine
DX: M17.11 Unilateral primary osteoarthritis, right knee (principal); M25.461 Effusion, right knee; F41.9 Anxiety disorder, unspecified; F32.A Depression, unspecified; J44.9 Chronic obstructive pulmonary disease, unspecified; Z88.8 Allergy status to other drugs, medicaments and biological substances; Z95.5 Presence of coronary angioplasty implant and graft; Z90.49 Acquired absence of other specified parts of digestive tract; Z98.890 Other specified postprocedural states; Z87.891 Personal history of nicotine dependence

== ENCOUNTER 2023-09-03 13:11 | Emergency (ER) | payer MEDICARE, OTHER ==
[~2023-09-03] VITALS: Ht 162.5 cm; Wt 90.7 kg
[~2023-09-03 13:11] MED LIST changes: +MELATONIN1 M6 PO; +NAPROXEN250 MG PO
[2023-09-03 13:39] VITALS: BP 132/77
[2023-09-03] MEDS ORDERED: BENADRYL ALLERG25 M5 PO (16:01)
[2023-09-03] MEDS ORDERED: PEPCID20 MG PO (16:01)
== END 2023-09-03 16:12 | disposition home or self-care (01) ==
LOC: ED 13:11
DX: R22.9 Localized swelling, mass and lump, unspecified (principal); T43.215A Adverse effect of selective serotonin and norepinephrine reuptake inhibitors, initial encounter; F41.9 Anxiety disorder, unspecified; F32.A Depression, unspecified; J44.9 Chronic obstructive pulmonary disease, unspecified; Z88.8 Allergy status to other drugs, medicaments and biological substances; Z90.49 Acquired absence of other specified parts of digestive tract; Z95.5 Presence of coronary angioplasty implant and graft; Z98.890 Other specified postprocedural states; Z87.891 Personal history of nicotine dependence; Y92.89 Other specified places as the place of occurrence of the external cause

== ENCOUNTER 2023-11-09 15:42 | Emergency (ER) | payer MEDICARE, OTHER ==
[~2023-11-09] VITALS: Wt 97.5 kg
[2023-11-09 16:11] VITALS: BP 124/73
[2023-11-09 16:38] LABS: BASO % 0.3 % (0.0-1.0); EOS # 0.3 10*3/uL (0.0-0.4); EOS % 4.2 % (1.0-4.0); HEMATOCRIT 36.8 % (37.0-47.0); LYMPH # 1.1 10*3/uL (1.3-4.4); LYMPH % 17.9 % (27.0-41.0); MEAN CELL VOLUME 89.5 fl (81.0-99.0); MEAN CORPUSCULAR HGB 29.2 pg (27.0-31.0); MEAN CORPUSCULAR HGB CONC 32.6 g/dl (33.0-37.0); MEAN PLATELET VOLUME 9.1 fl (9.6-12.3); MONO # 0.6 10*3/uL (0.1-1.0); MONO % 9.3 % (3.0-9.0); NEUT # 4.2 10*3/uL (2.3-7.9); PLATELET COUNT AUTOMATED 149 10*3/uL (130-400); RED BLOOD COUNT 4.11 10*6/uL (4.10-5.10); RED CELL DISTRI WIDTH 13.4 % (0-14.5); WHITE BLOOD COUNT 6.2 10*3/uL (4.8-10.8)
[2023-11-09 16:58] LABS: ALKALINE PHOSPHATASE 76 U/L (46-116); BUN 14 mg/dl (9-23); CHLORIDE 103 mmol/L (98-107); LIPASE 27 U/L (12-53); POTASSIUM 4.6 mmol/L (3.4-5.1); SGPT/ALT 29 U/L (5-49); TOTAL PROTEIN 6.8 gm/dL (6.0-8.0)
[2023-11-09 16:59] LABS: ACT PARTIAL THROMBO TIME 28.8 SECONDS (20.0-32.1)
[2023-11-09] MEDS ORDERED: LASIX40 MG PO (17:50)
[2023-11-09] MEDS ORDERED: KLOR-CON 1010 ME1 PO (17:50)
== END 2023-11-09 17:54 | disposition home or self-care (01) ==
LOC: ED 15:42
PROVIDERS: Emergency Medicine
DX: R60.0 Localized edema (principal); R06.02 Shortness of breath; I48.91 Unspecified atrial fibrillation; J44.9 Chronic obstructive pulmonary disease, unspecified; I10 Essential (primary) hypertension; Z88.8 Allergy status to other drugs, medicaments and biological substances; Z95.5 Presence of coronary angioplasty implant and graft; Z90.49 Acquired absence of other specified parts of digestive tract; Z98.890 Other specified postprocedural states; Z87.891 Personal history of nicotine dependence; F41.9 Anxiety disorder, unspecified; F32.A Depression, unspecified

== ENCOUNTER 2023-11-14 15:06 | Emergency (ER) | payer MEDICARE, OTHER ==
[~2023-11-14] VITALS: Ht 162.5 cm; Wt 97.5 kg
[~2023-11-14 15:06] MED LIST changes: +KLOR-CON 1010 ME1 PO; +LASIX40 MG PO
[2023-11-14 15:15] VITALS: BP 115/78
[2023-11-14] MEDS ORDERED: AUSTEDO PO (15:28)
[2023-11-14] MEDS ORDERED: AUSTEDO XR12 MG PO (15:30)
[2023-11-14 16:11] LABS: BASO % 0.4 % (0.0-1.0); EOS # 0.3 10*3/uL (0.0-0.4); EOS % 5.2 % (1.0-4.0); HEMATOCRIT 39.9 % (37.0-47.0); LYMPH % 19.7 % (27.0-41.0); MEAN CELL VOLUME 90.1 fl (81.0-99.0); MEAN CORPUSCULAR HGB 28.9 pg (27.0-31.0); MEAN CORPUSCULAR HGB CONC 32.1 g/dl (33.0-37.0); MEAN PLATELET VOLUME 9.3 fl (9.6-12.3); MONO # 0.4 10*3/uL (0.1-1.0); MONO % 7.1 % (3.0-9.0); NEUT # 3.5 10*3/uL (2.3-7.9); NEUT % 67.4 % (47.0-73.0); PLATELET COUNT AUTOMATED 183 10*3/uL (130-400); RED BLOOD COUNT 4.43 10*6/uL (4.10-5.10); RED CELL DISTRI WIDTH 13.7 % (0-14.5); WHITE BLOOD COUNT 5.2 10*3/uL (4.8-10.8)
[2023-11-14 16:24] LABS: ACT PARTIAL THROMBO TIME 30.5 SECONDS (20.0-32.1)
[2023-11-14 16:34] LABS: ALKALINE PHOSPHATASE 83 U/L (46-116); BUN 15 mg/dl (9-23); CHLORIDE 104 mmol/L (98-107); POTASSIUM 4.1 mmol/L (3.4-5.1); SGPT/ALT 27 U/L (5-49); TOTAL PROTEIN 7.1 gm/dL (6.0-8.0)
[2023-11-14] MEDS ORDERED: LASIX20 MG PO (19:20)
== END 2023-11-14 20:00 | disposition home or self-care (01) ==
LOC: ED 15:06
PROVIDERS: Nurse Practitioner Family
DX: R60.0 Localized edema (principal); J44.9 Chronic obstructive pulmonary disease, unspecified; I25.10 Atherosclerotic heart disease of native coronary artery without angina pectoris; K21.9 Gastro-esophageal reflux disease without esophagitis; E78.00 Pure hypercholesterolemia, unspecified; R73.9 Hyperglycemia, unspecified; I10 Essential (primary) hypertension; E87.6 Hypokalemia; E03.9 Hypothyroidism, unspecified; F41.9 Anxiety disorder, unspecified; F32.A Depression, unspecified; Z88.8 Allergy status to other drugs, medicaments and biological substances; Z98.890 Other specified postprocedural states; Z95.5 Presence of coronary angioplasty implant and graft; Z90.49 Acquired absence of other specified parts of digestive tract; Z87.891 Personal history of nicotine dependence

== ENCOUNTER 2024-01-10 13:25 | Emergency (ER) | payer MEDICARE, OTHER ==
[~2024-01-10] VITALS: Ht 162.5 cm; Wt 90.7 kg
[~2024-01-10 13:25] MED LIST changes: -ALPRAZOLAM0.5 M3 PO; -ASPIRIN81 M1 PO; -AUSTEDO XR24 MG PO; -CEFDINIR300 MG PO; -CETIRIZINE HYDR10 M1 PO; -HYDROCODONE-AC1 EAC2 PO; -HYDROXYZINE HCL25 MG PO; -IMIPRAMINE HCL50 MG PO; -IOHEXOL 300 MG/ML 100 ML VIAL ONE; -IOHEXOL 350 MG/ML 100 ML VIAL IV ONE; -MELATONIN5 M6 PO; -NYSTATIN CREAM15 GM T; -PREVACID30 M2 PO; -SODIUM CHLORIDE 0.9% 100 ML BAG IV ONE; -SODIUM CHLORIDE 0.9% 100 ML IV ONE
[2024-01-10 13:32] VITALS: BP 135/120
[2024-01-10] MEDS ORDERED: Metoprolol Tartrate 5 MG/5 ML VIAL IV ONE (13:55)
[2024-01-10 14:16] LABS: BASO % 0.3 % (0.0-1.0); EOS # 0.1 10*3/uL (0.0-0.4); EOS % 4.4 % (1.0-4.0); HEMATOCRIT 40.1 % (37.0-47.0); LYMPH # 0.9 10*3/uL (1.3-4.4); MEAN CELL VOLUME 87.6 fl (81.0-99.0); MEAN CORPUSCULAR HGB CONC 33.2 g/dl (33.0-37.0); MEAN PLATELET VOLUME 9.5 fl (9.6-12.3); MONO # 0.4 10*3/uL (0.1-1.0); MONO % 13.8 % (3.0-9.0); NEUT # 1.6 10*3/uL (2.3-7.9); NEUT % 52.5 % (47.0-73.0); PLATELET COUNT AUTOMATED 149 10*3/uL (130-400); RED BLOOD COUNT 4.58 10*6/uL (4.10-5.10); RED CELL DISTRI WIDTH 13.7 % (0-14.5)
[2024-01-10 14:32] LABS: ACT PARTIAL THROMBO TIME 30.8 SECONDS (20.0-32.1)
[2024-01-10 14:47] LABS: ALKALINE PHOSPHATASE 82 U/L (46-116); BUN 15 mg/dl (9-23); CHLORIDE 101 mmol/L (98-107); LIPASE 39 U/L (12-53); POTASSIUM 4.2 mmol/L (3.4-5.1); SGPT/ALT 30 U/L (5-49); TOTAL PROTEIN 6.7 gm/dL (6.0-8.0)
[2024-01-10 14:48] LABS: ETHYL ALCOHOL < 3.0 mg/dl (<3)
[2024-01-10] MEDS ORDERED: PREVACID30 M2 PO (21:10)
[2024-01-10] MEDS ORDERED: CEFDINIR300 MG PO (21:11)
[2024-01-10] MEDS ORDERED: PREDNISONE10 MG PO (21:12)
[2024-01-10] MEDS ORDERED: CETIRIZINE HYDR10 M1 PO (21:12)
[2024-01-10] MEDS ORDERED: AUSTEDO XR24 MG PO (21:12)
[2024-01-10] MEDS ORDERED: BENZONATATE100 M1 PO (21:13)
[2024-01-10] MEDS ORDERED: ASPIRIN81 M1 PO (21:13)
[2024-01-10] MEDS ORDERED: ALPRAZOLAM0.5 M3 PO (22:22)
[2024-01-10] MEDS ORDERED: IMIPRAMINE HCL50 MG PO (22:23)
[2024-01-10] MEDS ORDERED: NYSTATIN CREAM15 GM T (22:24)
[2024-01-10] MEDS ORDERED: MELATONIN5 M6 PO (22:26)
[2024-01-10] MEDS ORDERED: HYDROCODONE-AC1 EAC2 PO (22:27)
[2024-01-10] MEDS ORDERED: HYDROXYZINE HCL25 MG PO (22:29)
[2024-01-11] MEDS ORDERED: XARE20MG PO (17:08)
[2024-01-11] MEDS ORDERED: METOPROLOL SUCC25 M2 PO (17:08)
== END 2024-01-10 14:29 | disposition left against medical advice (07) ==
LOC: ED 13:25
PROVIDERS: Internal Medicine
DX: R00.0 Tachycardia, unspecified (principal); Z53.29 Procedure and treatment not carried out because of patient's decision for other reasons; I50.9 Heart failure, unspecified; F41.9 Anxiety disorder, unspecified; F32.A Depression, unspecified; J44.9 Chronic obstructive pulmonary disease, unspecified; Z88.8 Allergy status to other drugs, medicaments and biological substances; Z95.5 Presence of coronary angioplasty implant and graft; Z90.49 Acquired absence of other specified parts of digestive tract; Z98.890 Other specified postprocedural states; Z87.891 Personal history of nicotine dependence

== ENCOUNTER → 2024-01-10 | Outpatient (CLI) | payer MEDICARE, OTHER ==
[~2024-01-10] MED LIST changes: +ALPRAZOLAM0.5 M3 PO; +ASPIRIN81 M1 PO; +AUSTEDO PO; +AUSTEDO XR12 MG PO; +AUSTEDO XR24 MG PO; +CEFDINIR300 MG PO; +CETIRIZINE HYDR10 M1 PO; +HYDROCODONE-AC1 EAC2 PO; +HYDROXYZINE HCL25 MG PO; +IMIPRAMINE HCL50 MG PO; +IOHEXOL 300 MG/ML 100 ML VIAL ONE; +IOHEXOL 350 MG/ML 100 ML VIAL IV ONE; +LASIX20 MG PO; +MELATONIN5 M6 PO; +NYSTATIN CREAM15 GM T; +PREVACID30 M2 PO; +SODIUM CHLORIDE 0.9% 100 ML BAG IV ONE; +SODIUM CHLORIDE 0.9% 100 ML IV ONE
== END | disposition home or self-care (01) ==
LOC: CARD 12-28 08:30
PROVIDERS: ATTEND Internal Medicine
DX: M47.813 Spondylosis without myelopathy or radiculopathy, cervicothoracic region (principal); G45.9 Transient cerebral ischemic attack, unspecified; I50.30 Unspecified diastolic (congestive) heart failure; M48.02 Spinal stenosis, cervical region; I51.7 Cardiomegaly

== ENCOUNTER → 2025-04-15 | Outpatient (CLI) | payer OTHER ==
[~2025-04-15] MED LIST changes: +ALPRAZOLAM0.5 M3 PO; +ASPIRIN81 M1 PO; +AUSTEDO XR24 MG PO; +CEFDINIR300 MG PO; +CETIRIZINE HYDR10 M1 PO; +HYDROCODONE-AC1 EAC2 PO; +HYDROXYZINE HCL25 MG PO; +IMIPRAMINE50 MG PO; +MELATONIN5 M6 PO; +NYSTATIN CREAM15 GM T; +PRAZOSIN HYDROCH1 MG PO; +PREVACID30 M2 PO; +VITAMIN D350 MCG PO
== END | disposition home or self-care (01) ==
LOC: ORTHO 00:51
PROVIDERS: ATTEND Orthopaedic Surgery
DX: S42.291D Other displaced fracture of upper end of right humerus, subsequent encounter for fracture with routine healing (principal); M25.811 Other specified joint disorders, right shoulder; X58.XXXA Exposure to other specified factors, initial encounter; Y93.89 Activity, other specified; Y92.89 Other specified places as the place of occurrence of the external cause; Y99.8 Other external cause status

== ENCOUNTER → 2025-05-06 | Outpatient (CLI) | payer OTHER | END | disposition home or self-care (01) | LOC: ORTHO 01:43 | PROVIDERS: ATTEND Orthopaedic Surgery | DX: S42.291D Other displaced fracture of upper end of right humerus, subsequent encounter for fracture with routine healing (principal); X58.XXXD Exposure to other specified factors, subsequent encounter ==

== ENCOUNTER 2025-10-01 12:58 | Emergency (ER) | payer OTHER ==
[~2025-10-01] VITALS: Ht 165.1 cm; Wt 90.7 kg
[2025-10-01 13:08] VITALS: BP 147/90
[2025-10-01] MEDS ORDERED: Acetaminophen/Hydrocodone 5 MG/325 MG TABLET PO ONE (14:25)
[2025-10-01] MEDS ORDERED: Bacitracin Zinc 14 GM TUBE T ONE (15:10)
[2025-10-01] MEDS ORDERED: AMOX-CLAV 875-1 EACH PO (15:14)
== END 2025-10-01 15:38 | disposition home or self-care (01) ==
LOC: ED 12:58
DX: S61.451A Open bite of right hand, initial encounter (principal); S60.211A Contusion of right wrist, initial encounter; J44.9 Chronic obstructive pulmonary disease, unspecified; F41.9 Anxiety disorder, unspecified; F32.A Depression, unspecified; Z87.891 Personal history of nicotine dependence; Z98.890 Other specified postprocedural states; Z90.49 Acquired absence of other specified parts of digestive tract; Z88.8 Allergy status to other drugs, medicaments and biological substances; W55.01XA Bitten by cat, initial encounter; Y93.89 Activity, other specified; Y92.89 Other specified places as the place of occurrence of the external cause; Y99.8 Other external cause status